=== PATIENT | female | born 1930 | race African-American/Black ===

== ENCOUNTER 2017-07-06 23:51 | Inpatient (IN) | payer MEDICAID, MEDICARE ==
[~2017-07-06] VITALS: Ht 160 cm; Wt 86.7 kg
[~2017-07-06 23:51] MED LIST: ASPIR 8181 MG GT; CARAFATE1 G1 GT; CARAFATE1 G1 ORAL; COLACE100 MG GT; COUMADIN5 MG GT; DILANTIN100 MG GT; DUONEB 0.5 MG-33 ML IH; DUONEB 0.5-3(2.53 ML HHN; FISH OIL EC 1,1 EACH GT; FLAGYL500 MG ORAL; FLUCONAZOLE100 MG ORAL; INVANZ1 GM IVPB; MOM30 ML GT; MULTIVITAM9 MG/15 M1 GT; NAMENDA10 MG GT; PRILOSEC20 MG GT; SALINE 10ML FLU10 ML IVF; TYLENOL EX500 MG/15 GT; TYLENOL EXTRA500 MG GT; VITAMIN D1000 UNI1 GT
[2017-07-07] VITALS (8 sets, daily range): BP systolic 98–136; BP diastolic 48–74
[2017-07-07] MEDS ORDERED: Vancomycin 1 GM in D5W 275 ML IVPB ONE (00:30)
[2017-07-07 00:40] LABS: MEAN CORPUSCULAR HEMOGLOBIN 31.6 PG (27.0-31.0); MEAN CORPUSCULAR VOLUME 96 FL (80-99); MEAN PLATELET VOLUME 11.5 FL (6.5-10.1); PLATELET COUNT 122 K/UL (150-450); RED BLOOD COUNT 4.17 M/UL (4.20-5.40); RED CELL DISTRIBUTION WIDTH 13.2 % (11.6-14.8)
[2017-07-07 00:59] LABS: REFLEX LACTIC ACID YES OR NO YES
[2017-07-07 01:21] LABS: ALANINE AMINOTRANSFERASE 18 U/L (3-33); ALBUMIN/GLOBULIN RATIO 0.7 (1.0-2.7); ANION GAP 15 (5-15); ASPARTATE AMINO TRANSFERASE 18 U/L (5-40); CALCIUM 9.9 mg/dL (8.6-10.2); CARBON DIOXIDE 28 mEQ/L (20-30); CHLORIDE 105 mEQ/L (98-107); CREATININE 2.3 mg/dL (0.5-0.9); HEMOLYSIS 36; POTASSIUM 4.7 mEQ/L (3.4-4.9); SODIUM 148 mEQ/L (135-145); TOTAL PROTEIN 6.8 g/dL (6.6-8.7)
[2017-07-07 01:31] LABS: BAND NEUTROPHILS % (MANUAL) 6 % (0-8); BASOPHILS % (MANUAL) 0 % (0-2); EOSINOPHILS % (MANUAL) 0 % (0-3); LYMPHOCYTES % (MANUAL) 8 % (20-45); NEUTROPHILS % (MANUAL) 79 % (45-75); PLATELET ESTIMATE DECREASED; TOTAL CELLS COUNTED 100
[2017-07-07 01:32] LABS: PLATELET MORPHOLOGY NORMAL
[2017-07-07 01:37] LABS: TROPONIN I < 0.30 ng/mL (<=0.30)
[2017-07-07 01:47] LABS: CKMB 3.7 ng/mL (< 3.8)
[2017-07-07 02:00] LABS: APPEARANCE,URINE CLOUDY; KETONES,URINE 1+ (NEGATIVE); LEUKOCYTE ESTERASE ,URINE 3+ (NEGATIVE); PH,URINE 5 (4.5-8.0); PROTEIN,URINE 2+ (NEGATIVE); UROBILINOGEN,URINE 1 MG/DL (0.0-1.0)
[2017-07-07 02:13] LABS: NITRITE,URINE POSITIVE (NEGATIVE)
[2017-07-07 02:14] LABS: BACTERIA,URINE MANY /HPF; SQUAMOUS EPITHELIAL CELL,UR MANY /LPF (NONE/OCC); WBC,URINE TNTC /HPF (0 - 2)
[2017-07-07] MEDS ORDERED: Cefepime HCl 1 GM in D5W 55 ML IVPB ONE (02:30)
[2017-07-07] MEDS ORDERED: Cefepime 1gm vial ONE (02:53)
[2017-07-07] MEDS ORDERED: PROTONIX40 MG GT (03:09)
[2017-07-07] MEDS ORDERED: ACETAMINOPHEN325 M1 ORAL (03:11)
[2017-07-07] MEDS ORDERED: COLACE100 MG ORAL (03:12)
[2017-07-07] MEDS ORDERED: DILANTIN50 MG ORAL (03:14)
[2017-07-07] MEDS ORDERED: FUROSEMIDE40 MG GT (03:16)
[2017-07-07] MEDS ORDERED: NAMENDA10 MG GT (03:17)
[2017-07-07] MEDS ORDERED: NORVASC5 MG GT (03:18)
[2017-07-07] MEDS ORDERED: BISCOLAX10 MG RC (03:20)
[2017-07-07] MEDS ORDERED: ZOFRAN4 M3 GT (03:21)
[2017-07-07] MEDS ORDERED: MULTIVITAMINS1 EAC8 ORAL (03:22)
[2017-07-07] MEDS ORDERED: COREG3.125 MG ORAL (03:23)
[2017-07-07] MEDS ORDERED: ATORVASTATIN CA40 MG ORAL (03:24)
[2017-07-07] MEDS ORDERED: CRANBERRY450 M4 GT (03:24)
--- NOTE | 2017-07-07 04:21 | Emergency Room Report ---
History of Present Illness General Chief Complaint: Generalized Weakness Source: Medical Record, EMS Present Illness HPI 86-year-old female presents to ED for evaluation. Per EMS patient was found more altered than baseline at her residential. Patient had a fever. Symptoms started today. She denies history of dementia. Upon arrival patient is showing no signs of distress. Patient is unable to provide any additional history at this time. No other aggravating or leading factors. No other associated symptoms Allergies: Coded Allergies: HALOPERIDOL (Verified Allergy, Unknown, 08/03/10) SULFA (SULFONAMIDE ANTIBIOTICS) (Verified Allergy, Unknown, 08/03/10) Patient History Past Medical History: DM, GERD, dementia Past Surgical History: other - Gtube Pertinent Family History: none Social History: Denies: smoking, alcohol use, drug use Now: No Immunizations: UTD Reviewed Nursing Documentation: PMH: Agreed, PSxH: Agreed Nursing Documentation-PMH Hx Diabetes: Yes Hx Gastrointestinal Problems: Yes - GERD GT History Of Psychiatric Problem: Yes - DEMENTIA Hx Cerebrovascular Accident: No - stroke Hx Seizures: Yes Review of Systems All Other Systems: limited Physical Exam Vital Signs Date Time Temp Pulse Resp B/P (MAP) Pulse Ox O2 Delivery O2 Flow Rate FiO2 07/06/17 23:40 98.4 80 16 100/48 92 Room Air Sp02 EP Interpretation: reviewed, normal General Appearance: no apparent distress, alert, GCS 15, non-toxic Head: normocephalic, atraumatic Eyes: bilateral eye normal inspection, bilateral eye PERRL ENT: hearing grossly normal, normal pharynx, no angioedema, normal voice Neck: full range of motion, supple/symm/no masses Respiratory: chest non-tender, lungs clear, normal breath sounds, speaking full sentences Cardiovascular #1: no edema, tachycardia Cardiovascular #2: 2+ carotid (R), 2+ carotid (L), 2+ radial (R), 2+ radial (L) , 2+ dorsalis pedis (R), 2+ dorsalis pedis (L) Gastrointestinal: normal bowel sounds, non tender, soft, non-distended, no guarding, no rebound Rectal: deferred Genitourinary: normal inspection, no CVA tenderness Musculoskeletal: back normal, gait/station normal, normal range of motion, non- tender Neurologic: other - dementia Psychiatric: other - dementiia Reflexes: 3+ bicep (R), 3+ bicep (L), 3+ tricep (R), 3+ tricep (L), 3+ knee (R) , 3+ knee (L) Skin: normal color, no rash, warm/dry, well hydrated Lymphatic: no adenopathy Medical Decision Making Diagnostic Impression: Primary Impression: Sepsis Qualified Codes: A41.9 - Sepsis, unspecified organism Additional Impressions: UTI (lower urinary tract infection) Respiratory insufficiency ER Course Hospital Course 86-year-old female presenting to ED with generalized weakness Differential diagnoses include: Pneumonia, UTI, sepsis, dehydration, IA/ unstable angina Clinical course Patient placed on stretcher. On nuclear monitoring technician with stable vitals are ED course. After initial history and physical, I ordered labs, IV fluids, EKG, chest x-ray, blood cultures, UA. Labs - BUN/Cr elevated, noted leukocytosis, troponins negative, UA grossly positive for UTI, lactate elevated EKG - NSR, no acute changes interpreted by me CXR - no acute process Abx given. given 30cc/kg fluid bolus. Case discussed with Dr Wills. Requested that I admit to Dr Garcia and they agreed to admit patient to their service for further care and support I feel this is a highly complex case requiring extensive working including EKG/ Rhythm strip, Xray/CT/US, Blood/urine lab work, repeat exams while in ED, and administration of strong opiates/narcotics for pain control, admission to hospital or close patient follow up. Diagnosis - sepsis, UTI, renal insufficiency Patient admitted to telemetry in serious condition Labs Test 07/07/17 00:20 07/07/17 01:45 07/07/17 01:59 White Blood Count 22.0 K/UL (4.8-10.8) Red Blood Count 4.17 M/UL (4.20-5.40) Hemoglobin 13.2 G/DL (12.0-16.0) Hematocrit 39.9 % (37.0-47.0) Mean Corpuscular Volume 96 FL (80-99) Mean Corpuscular Hemoglobin 31.6 PG (27.0-31.0) Mean Corpuscular Hemoglobin Concent 33.0 G/DL (32.0-36.0) Red Cell Distribution Width 13.2 % (11.6-14.8) Platelet Count 122 K/UL (150-450) Mean Platelet Volume 11.5 FL (6.5-10.1) Neutrophils (%) (Auto) % (45.0-75.0) Lymphocytes (%) (Auto) % (20.0-45.0) Monocytes (%) (Auto) % (1.0-10.0) Eosinophils (%) (Auto) % (0.0-3.0) Basophils (%) (Auto) % (0.0-2.0) Differential Total Cells Counted 100 Neutrophils % (Manual) 79 % (45-75) Lymphocytes % (Manual) 8 % (20-45) Monocytes % (Manual) 7 % (1-10) Eosinophils % (Manual) 0 % (0-3) Basophils % (Manual) 0 % (0-2) Band Neutrophils 6 % (0-8) Platelet Estimate Decreased Platelet Morphology Normal Red Blood Cell Morphology Normal Sodium Level 148 mEQ/L (135-145) Potassium Level 4.7 mEQ/L (3.4-4.9) Chloride Level 105 mEQ/L (98-107) Carbon Dioxide Level 28 mEQ/L (20-30) Anion Gap 15 (5-15) Blood Urea Nitrogen 96 mg/dL (7-23) Creatinine 2.3 mg/dL (0.5-0.9) Estimat Glomerular Filtration Rate mL/min (>60) Glucose Level 352 mg/dL (74-106) Lactic Acid Level 2.40 mmol/L (0.66-2.22) 2.40 mmol/L (0.66-2.22) Calcium Level 9.9 mg/dL (8.6-10.2) Total Bilirubin 0.4 mg/dL (0.0-1.2) Aspartate Amino Transf (AST/SGOT) 18 U/L (5-40) Alanine Aminotransferase (ALT/SGPT) 18 U/L (3-33) Alkaline Phosphatase 90 U/L (35-104) Total Creatine Kinase 77 U/L (26-140) Creatine Kinase MB 3.7 ng/mL (< 3.8) Creatine Kinase MB Relative Index 4.8 Troponin I < 0.30 ng/mL (<=0.30) Pro-B-Type Natriuretic Peptide 5084 pg/mL (0-450) Total Protein 6.8 g/dL (6.6-8.7) Albumin 2.9 g/dL (3.5-5.2) Globulin 3.9 g/dL Albumin/Globulin Ratio 0.7 (1.0-2.7) Urine Color Yellow Urine Appearance Cloudy Urine pH 5 (4.5-8.0) Urine Specific [place] 1.015 (1.005-1.035) Urine Protein 2+ (NEGATIVE) Urine Glucose (UA) Negative (NEGATIVE) Urine Ketones 1+ (NEGATIVE) Urine Occult Blood 2+ (NEGATIVE) Urine Nitrite Positive (NEGATIVE) Urine Bilirubin Negative (NEGATIVE) Urine Urobilinogen 1 MG/DL (0.0-1.0) Urine Leukocyte Esterase 3+ (NEGATIVE) Urine RBC 10-15 /HPF (0 - 2) Urine WBC Tntc /HPF (0 - 2) Urine Squamous Epithelial Cells Many /LPF (NONE/OCC) Urine Bacteria Many /HPF (NONE) EKG Diagnostic Results Rate: normal Rhythm: NSR ST Segments: no acute changes ASA given to the pt in ED: No Rhythm Strip Diag. Results EP Interpretation: yes Rhythm: NSR, no PVC's, no ectopy Chest X-Ray Diagnostic Results Chest X-Ray Diagnostic Results : Chest X-Ray Ordered: Yes # of Views/Limited/Complete: 1 View Indication: Shortness of Breath EP Interpretation: Yes Interpretation: no consolidation, no effusion, no pneumothorax, no acute cardiopulmonary disease, other - cardiomegaly Impression: No acute disease Electronically Signed by: Electronically signed by Dougie Artis MD Last Vital Signs Date Time Temp Pulse Resp B/P (MAP) Pulse Ox O2 Delivery O2 Flow Rate FiO2 07/07/17 03:03 98.4 91 24 108/59 94 Room Air Status: improved Disposition: ADMITTED INPATIENT Condition: Serious Referrals: ALBERTO GARCIA (PCP) DOUGIE ARTIS M.D. Jul 07, 2017 04:21
[2017-07-07] MEDS ORDERED: Morphine Sulfate 2mg/ml Inj IVP PRN (05:45)
[2017-07-07] MEDS ORDERED: Miralax 17gm pkt ORAL PRN (05:45)
[2017-07-07] MEDS ORDERED: Albuterol/Ipratropium 3ml neb HHN PRN (05:45)
[2017-07-07] MEDS ORDERED: Nitroglycerin Subl 0.4mg tab SL PRN (05:45)
[2017-07-07] MEDS ORDERED: LISINOPRIL10 MG GT (06:01)
[2017-07-07] MEDS ORDERED: GLUCERNA1500 ML GT (06:01)
[2017-07-07] MEDS ORDERED: HUMALOG100 UNIT/4 SUBQ (06:01)
[2017-07-07] MEDS ORDERED: Rx Monitoring Vancomycin MISC PRN (06:15)
[2017-07-07 08:53] LABS: APPEARANCE,URINE TURBID; KETONES,URINE NEGATIVE (NEGATIVE); LEUKOCYTE ESTERASE ,URINE 3+ (NEGATIVE); NITRITE,URINE NEGATIVE (NEGATIVE); PH,URINE 7 (4.5-8.0); PROTEIN,URINE 2+ (NEGATIVE); UROBILINOGEN,URINE NORMAL MG/DL (0.0-1.0)
[2017-07-07] MEDS: Heparin 5000 units/ml inj SUBQ SCH ×2 (08:57→20:37)
[2017-07-07] MEDS ORDERED: Cefepime HCl 2 GM in D5W 110 ML IV SCH (09:00)
[2017-07-07] MEDS ORDERED: Vancomycin 1250mg/D5W 250ml IVPB ONE (09:00)
[2017-07-07 09:21] LABS: ALANINE AMINOTRANSFERASE 18 U/L (3-33); ALBUMIN/GLOBULIN RATIO 0.6 (1.0-2.7); ANION GAP 13 (5-15); ASPARTATE AMINO TRANSFERASE 18 U/L (5-40); CALCIUM 9.4 mg/dL (8.6-10.2); CARBON DIOXIDE 27 mEQ/L (20-30); CHLORIDE 110 mEQ/L (98-107); CREATININE 1.8 mg/dL (0.5-0.9); HEMOLYSIS 0; MAGNESIUM 2.6 mg/dL (1.7-2.5); PHOSPHORUS 4.4 mg/dL (2.5-4.8); POTASSIUM 4.2 mEQ/L (3.4-4.9); SODIUM 150 mEQ/L (135-145); TOTAL PROTEIN 6.5 g/dL (6.6-8.7); URIC ACID 9.5 mg/dL (3.0-7.5)
[2017-07-07 09:37] LABS: BACTERIA,URINE MANY /HPF; HYALINE CASTS, URINE 0-2 /LPF; SQUAMOUS EPITHELIAL CELL,UR MANY /LPF (NONE/OCC)
--- NOTE | 2017-07-07 09:48 | Consultation ---
Consult Note Consult Note patient admitted to Dr Saeid Mejía am consulting for renal failure Chief Complaint: Generalized Weakness 86-year-old female presents to ED for evaluation. Per EMS patient was found more altered than baseline at her halfway. Patient had a fever. Symptoms started today. She denies history of dementia. Upon arrival patient is showing no signs of distress. Patient is unable to provide any additional history at this time. No other aggravating or leading factors. No other associated symptoms Allergies: HALOPERIDOL (Verified Allergy, Unknown, 08/03/10) SULFA (SULFONAMIDE ANTIBIOTICS) (Verified Allergy, Unknown, 08/03/10) Patient History Past Medical History: DM, GERD, dementia Past Surgical History: other - Gtube Hx Diabetes: Yes Hx Gastrointestinal Problems: Yes - GERD GT History Of Psychiatric Problem: Yes - DEMENTIA Hx Cerebrovascular Accident: No - stroke Hx Seizures: Yes Assessment/Plan Acute renal failure- Sepsis- likely urinary DM OOC h/o HTN PEG OBS Sz dosorder s/p Pneumonia h/o Anemia Plan: Hydrate- Avoid Nephrotoxics- Gastric support- Pulmonary toilet Monitor renal parameters and urine out put Keep BS and BP in check ALBERTO GARCIA Jul 07, 2017 09:48
--- NOTE | 2017-07-07 11:28 | Diagnostic Imaging Report ---
Indication: Dyspnea Comparison: 10/21/13 A single view chest radiograph was obtained. Findings: The superior mediastinum especially in the right paratracheal region is prominent but this was also the case on the last study from 2013 as well as in 2010. The heart is enlarged. Aorta is ectatic. The bones are osteopenic. Lungs are clear. Impression: No acute disease
[2017-07-07] MEDS: NovoLOG Insulin Flexpen SUBQ SCH ×3 (11:40→20:40)
[2017-07-07] MEDS: Pantoprazole Inj IVP SCH ×2 (11:40→20:36)
--- NOTE | 2017-07-07 12:27 | History and Physical ---
History of Present Illness General Date patient seen: Jul 07, 2017 Reason for Hospitalization: Generalized Weakness Present Illness HPI 86-year-old female with end stage dementia, bed bound Gube feeding, at the brink of life, presented to ED for evaluation of altered level of consciousness more than baseline at her residential. Patient had a fever as well with leukocytosis. Pt is admitted to [facility] for further evaluation. Allergies: Coded Allergies: HALOPERIDOL (Verified Allergy, Unknown, 08/03/10) SULFA (SULFONAMIDE ANTIBIOTICS) (Verified Allergy, Unknown, 08/03/10) Medication History Scheduled Amlodipine Besylate (Norvasc), 5 MG GT DAILY, (Reported) Aspirin* (Aspir 81*), 81 MG GT DAILY, (Reported) Atorvastatin Calcium* (Atorvastatin Calcium*), 80 MG ORAL BEDTIME, (Reported) Carvedilol (Coreg), 3.125 MG ORAL BID, (Reported) Cholecalciferol (Vitamin D3)* (Vitamin D*), 2,000 UNITS GT DAILY, (Reported) Cranberry Fruit Concentrate (Cranberry), 450 MG GT DAILY, (Reported) Docusate Sodium* (Colace*), 100 MG ORAL TWICE A DAY, (Reported) Furosemide* (Lasix*), 40 MG GT DAILY, (Reported) Insulin Lispro (Humalog), 0 SUBQ BID, (Reported) Ipratropium/Albuterol Sulfate (Duoneb 0.5 Mg-3 Mg/3 Ml Soln), 3 ML IH Q6HR, ( Reported) Lisinopril* (Lisinopril*), 20 MG GT DAILY, (Reported) Memantine Hcl* (Namenda*), 10 MG GT TWICE A DAY, (Reported) Memantine Hcl* (Namenda*), 10 MG GT TWICE A DAY, (Reported) Multivitamin With Minerals (Multivitamins With Minerals*), 1 TAB ORAL DAILY, ( Reported) [place]-3/Dha/Epa/Fish Oil (Fish Oil Ec 1,000 Mg Softgel), 1 GT DAILY, (Reported) Omeprazole (Prilosec), 20 MG GT DAILY, (Reported) Pantoprazole* (Protonix*), 40 MG GT DAILY, (Reported) Phenytoin (Dilantin), 50 MG ORAL EVERY 8 HOURS, (Reported) Phenytoin Sodium Extended* (Dilantin*), 100 MG GT Q8HR, (Reported) Sucralfate* (Carafate*), 1 GM GT Q12HR, (Reported) Scheduled PRN Acetaminophen (Tylenol Extra Strength), 650 MG GT Q4HR PRN for Prn Headache/ Temp > 101, (Reported) Acetaminophen* (Acetaminophen 325MG Tablet*), 325 MG ORAL Q4H PRN for Fever/ Headache/Mild Pain, (Reported) Ipratropium/Albuterol Sulfate (DuoNeb 0.5-3(2.5)mg/3ml), 3 ML HHN Q4HR PRN for Shortness of Breath, (Reported) Magnesium Hydroxide (Milk of Magnesia), 30 ML GT DAILY PRN for Constipation, ( Reported) Ondansetron* (Zofran*), 4 MG GT Q4HR PRN for Nausea & Vomiting, (Reported) Miscellaneous Medications Bisacodyl (Biscolax), 10 MG RC, (Reported) Multivits W-Min/Ferrous Gluc (Multivitamin-Mineral Liquid), 5 ML GT, (Reported) Nut.tx.gluc.intoler,Lac-Fr,Soy (Glucerna 1.2 Agustin), 1,500 ML GT, (Reported) Patient History Healthcare decision maker Kelly Mane (Daughter) Resuscitation status Full Code Advanced Directive on File No Past Medical/Surgical History Past Medical/Surgical History: (1) CVA, old, aphasia (2) G tube feedings (3) Seizure disorder (4) HTN (hypertension) (5) Diabetes Review of Systems All Other Systems: negative except mentioned in HPI Physical Exam General Appearance: WD/WN Lines, tubes and drains: gtube HEENT: normocephalic, atraumatic Neck: non-tender, normal alignment Respiratory/Chest: rhonchi - bilaterally Cardiovascular/Chest: normal peripheral pulses, normal rate Abdomen: normal bowel sounds, non tender Genitourinary/Rectal: normal genital exam Extremities: normal range of motion Skin Exam: normal pigmentation Neurologic: proof clerk II-XII grossly normal Lymphatic: posterior cervical (L) Last 24 Hour Vital Signs Date Time Temp Pulse Resp B/P (MAP) Pulse Ox O2 Delivery O2 Flow Rate FiO2 07/07/17 08:00 96.9 87 18 105/61 99 Nasal Cannula 3.0 07/07/17 08:00 83 07/07/17 06:55 Nasal Cannula 3.0 32 07/07/17 06:55 81 16 Nasal Cannula 3.0 32 07/07/17 06:55 99 Nasal Cannula 3.0 32 07/07/17 04:22 98.3 87 24 98/53 97 Nasal Cannula 2.0 07/07/17 04:22 98.3 87 24 98/53 97 Nasal Cannula 2.0 07/07/17 04:21 84 07/07/17 03:03 98.4 91 24 108/59 94 Room Air 07/07/17 00:15 98.4 85 16 100/48 92 Room Air 07/06/17 23:40 98.4 80 16 100/48 92 Room Air Intake and Output 07/07/17 07/08/17 19:00 07:00 Intake Total 110 ml Balance 110 ml IV Total 110 ml Laboratory Tests Test 07/07/17 00:20 07/07/17 01:45 07/07/17 01:59 07/07/17 06:50 White Blood Count 22.0 K/UL (4.8-10.8) H Red Blood Count 4.17 M/UL (4.20-5.40) L Hemoglobin 13.2 G/DL (12.0-16.0) Hematocrit 39.9 % (37.0-47.0) Mean Corpuscular Volume 96 FL (80-99) Mean Corpuscular Hemoglobin 31.6 PG (27.0-31.0) H Mean Corpuscular Hemoglobin Concent 33.0 G/DL (32.0-36.0) Red Cell Distribution Width 13.2 % (11.6-14.8) Platelet Count 122 K/UL (150-450) L Mean Platelet Volume 11.5 FL (6.5-10.1) H Neutrophils (%) (Auto) % (45.0-75.0) Lymphocytes (%) (Auto) % (20.0-45.0) Monocytes (%) (Auto) % (1.0-10.0) Eosinophils (%) (Auto) % (0.0-3.0) Basophils (%) (Auto) % (0.0-2.0) Differential Total Cells Counted 100 Neutrophils % (Manual) 79 % (45-75) H Lymphocytes % (Manual) 8 % (20-45) L Monocytes % (Manual) 7 % (1-10) Eosinophils % (Manual) 0 % (0-3) Basophils % (Manual) 0 % (0-2) Band Neutrophils 6 % (0-8) Platelet Estimate Decreased L Platelet Morphology Normal Red Blood Cell Morphology Normal Sodium Level 148 mEQ/L (135-145) H Potassium Level 4.7 mEQ/L (3.4-4.9) Chloride Level 105 mEQ/L (98-107) Carbon Dioxide Level 28 mEQ/L (20-30) Anion Gap 15 (5-15) Blood Urea Nitrogen 96 mg/dL (7-23) H Creatinine 2.3 mg/dL (0.5-0.9) H Estimat Glomerular Filtration Rate mL/min (>60) Glucose Level 352 mg/dL (74-106) H Lactic Acid Level 2.40 mmol/L (0.66-2.22) H 2.40 mmol/L (0.66-2.22) H Calcium Level 9.9 mg/dL (8.6-10.2) Total Bilirubin 0.4 mg/dL (0.0-1.2) Aspartate Amino Transf (AST/SGOT) 18 U/L (5-40) Alanine Aminotransferase (ALT/SGPT) 18 U/L (3-33) Alkaline Phosphatase 90 U/L (35-104) Total Creatine Kinase 77 U/L (26-140) Creatine Kinase MB 3.7 ng/mL (< 3.8) Creatine Kinase MB Relative Index 4.8 Troponin I < 0.30 ng/mL (<=0.30) Pro-B-Type Natriuretic Peptide 5084 pg/mL (0-450) H Total Protein 6.8 g/dL (6.6-8.7) Albumin 2.9 g/dL (3.5-5.2) L Globulin 3.9 g/dL Albumin/Globulin Ratio 0.7 (1.0-2.7) L Urine Color Yellow Pale yellow Urine Appearance Cloudy Turbid Urine pH 5 (4.5-8.0) 7 (4.5-8.0) Urine Specific [place] 1.015 (1.005-1.035) 1.010 (1.005-1.035) Urine Protein 2+ (NEGATIVE) H 2+ (NEGATIVE) H Urine Glucose (UA) Negative (NEGATIVE) Negative (NEGATIVE) Urine Ketones 1+ (NEGATIVE) H Negative (NEGATIVE) Urine Occult Blood 2+ (NEGATIVE) H 4+ (NEGATIVE) H Urine Nitrite Positive (NEGATIVE) H Negative (NEGATIVE) Urine Bilirubin Negative (NEGATIVE) Negative (NEGATIVE) Urine Urobilinogen 1 MG/DL (0.0-1.0) H Normal MG/DL (0.0-1.0) Urine Leukocyte Esterase 3+ (NEGATIVE) H 3+ (NEGATIVE) H Urine RBC 10-15 /HPF (0 - 2) H 10-15 /HPF (0 - 2) H Urine WBC Tntc /HPF (0 - 2) H 10-15 /HPF (0 - 2) H Urine Squamous Epithelial Cells Many /LPF (NONE/OCC) H Many /LPF (NONE/OCC) H Urine Bacteria Many /HPF (NONE) H Many /HPF (NONE) H Urine Hyaline Casts 0-2 /LPF (NONE) H Urine Eosinophils None seen Urine Osmolality 484 mOsm/kg (429-449) H Urine Random Sodium 23 mmol/L Urine Random Chloride 18 mmol/L Urine Potassium Timed 56 mmol/L Test 07/07/17 08:15 Sodium Level 150 mEQ/L (135-145) H Potassium Level 4.2 mEQ/L (3.4-4.9) Chloride Level 110 mEQ/L (98-107) H Carbon Dioxide Level 27 mEQ/L (20-30) Anion Gap 13 (5-15) Blood Urea Nitrogen 92 mg/dL (7-23) H Creatinine 1.8 mg/dL (0.5-0.9) H Estimat Glomerular Filtration Rate mL/min (>60) Glucose Level 332 mg/dL (74-106) H Uric Acid 9.5 mg/dL (3.0-7.5) H Calcium Level 9.4 mg/dL (8.6-10.2) Phosphorus Level 4.4 mg/dL (2.5-4.8) Magnesium Level 2.6 mg/dL (1.7-2.5) H Total Bilirubin 0.4 mg/dL (0.0-1.2) Aspartate Amino Transf (AST/SGOT) 18 U/L (5-40) Alanine Aminotransferase (ALT/SGPT) 18 U/L (3-33) Alkaline Phosphatase 94 U/L (35-104) Total Creatine Kinase 107 U/L (26-140) Total Protein 6.5 g/dL (6.6-8.7) L Albumin 2.6 g/dL (3.5-5.2) L Globulin 3.9 g/dL Albumin/Globulin Ratio 0.6 (1.0-2.7) L Free Thyroxine 1.76 ng/dL (0.86-1.85) Height (Feet): 5 Height (Inches): 3.00 Weight (Pounds): 152 Medications Current Medications Medications (Trade) Dose Ordered Sig/Charli Route PRN Reason Start Time Stop Time Status Last Admin Dose Admin Acetaminophen (Tylenol) 650 mg Q4H PRN ORAL fever 07/07/17 05:45 08/06/17 05:44 Albuterol/ Ipratropium (DuoNeb 0.5-3(2.5)mg/3ml) 3 ml EVERY 4 HOURS PRN HHN Shortness of Breath 07/07/17 05:45 07/12/17 05:44 Cefepime HCl 2 gm/ Dextrose 110 ml @ 220 mls/hr EVERY 12 HOURS IV 07/07/17 09:00 07/14/17 08:59 07/07/17 08:57 Dextrose (Dextrose 50%) STAT PRN IV Hypoglycemia 07/07/17 08:00 08/06/17 07:59 Heparin Sodium (Porcine) (Heparin 5000 units/ml) 5,000 units EVERY 12 HOURS SUBQ 07/07/17 09:00 08/06/17 08:59 07/07/17 08:57 Insulin Aspart (NovoLOG) BEFORE MEALS AND HS SUBQ 07/07/17 11:30 08/06/17 11:29 07/07/17 11:40 Morphine Sulfate (Morphine Sulfate) 2 mg EVERY 4 HOURS PRN IVP Moderate Pain (Pain Scale 4-6) 07/07/17 05:45 07/14/17 05:44 Nitroglycerin (Ntg) 0.4 mg Every 5 Minutes PRN SL Prn Chest Pain 07/07/17 05:45 08/06/17 05:44 Ondansetron HCl (Zofran) 4 mg Q6H PRN IVP Nausea & Vomiting 07/07/17 05:45 08/06/17 05:44 Pantoprazole (Protonix) 40 mg EVERY 12 HOURS IVP 07/07/17 10:30 08/06/17 10:29 07/07/17 11:40 Polyethylene Glycol (Miralax) 17 gm DAILYPRN PRN ORAL Constipation 07/07/17 05:45 08/06/17 05:44 Sodium Chloride 1,000 ml @ 100 mls/hr Q10H IVLG 07/08/17 00:21 08/07/17 00:20 Temazepam (Restoril) 15 mg HSPRN PRN ORAL Insomnia 07/07/17 05:45 07/14/17 05:44 Vancomycin HCl (Rx Monitoring Vancomycin) 1 ea DAILY PRN MISC PROTOCHOI 07/07/17 06:15 08/06/17 06:14 Vancomycin HCl 1 gm/Dextrose 275 ml @ 183.708 mls/hr Q48H IVPB 07/09/17 09:00 07/14/17 08:59 Assessment/Plan Problem List: (1) Sepsis ICD Codes: A41.9 - Sepsis SNOMED: 04817357 Qualifiers: Qualified Codes: A41.9 - Sepsis, unspecified organism (2) Acute encephalopathy ICD Codes: G93.40 - Encephalopathy, unspecified SNOMED: 6574027 (3) ATN (acute tubular necrosis) ICD Codes: N17.0 - Acute kidney failure with tubular necrosis SNOMED: 43775914 (4) CVA, old, aphasia ICD Codes: I69.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
--- NOTE | 2017-07-07 15:03 | Diagnostic Imaging Report ---
Indication:Elevated Bun and Creatinine. Technique: Grayscale and duplex Doppler imaging of the kidneys performed. Comparison: None Findings: Renal size and contour are normal. The right kidney is 11.6 cm while the left kidney is 0.3 cm. There are multiple cysts. There are some calcifications in the right kidney that could be small nonobstructive stones. Coronel catheter is noted. IVC is unremarkable. Impression: Possible nonobstructive stones versus vascular calcifications in the right kidney. No hydronephrosis. Multiple bilateral renal cysts of varying size
[2017-07-07] MEDS ORDERED: Tubing IV Secondary IV ONE (16:31)
[2017-07-07] MEDS ORDERED: NS 275ml ONE (16:31)
--- NOTE | 2017-07-07 19:35 | Consultation ---
Consult Note Consult Note dic # [id number] ALEXANDREA THOMAS M.D. Jul 07, 2017 19:35
[2017-07-08 03:53] VITALS: BP 131/69
--- NOTE | 2017-07-08 05:15 | Consultation ---
DATE OF CONSULTATION: 07/07/2017 INFECTIOUS DISEASES CONSULTATION CONSULTING PHYSICIAN: Levi Palma M.D. REQUESTING PHYSICIAN: Raul Garcia M.D. Reason For Consultation: Evaluation of the patient with sepsis, pneumonia, and antibiotic management. History Of Present Illness: The patient is an 86-year-old female with multiple medical problems, who was admitted to this medical center because of fever, leukocytosis, sepsis. An Infectious Disease consultation has been requested for evaluation of the patient and antibiotic management. The patient is not able to provide information. Much of the information is gathered through the chart and speaking to staff. PAST MEDICAL HISTORY: 1. Dementia. 2. GERD, status post PEG placement. 3. Seizure disorder. 4. Recent DVT. 5. Hyperlipidemia. 6. Hypertension. 7. COPD. 8. Obesity. 9. GI bleed. 10. Osteoarthritis. 11. Diabetes. 12. Anemia. MEDICATION: Vancomycin and cefepime. ALLERGIES: Haloperidol and sulfa. SOCIAL HISTORY: The patient lives in a alf. FAMILY HISTORY: Unavailable. REVIEW OF SYSTEMS: Unobtainable. PHYSICAL EXAMINATION: Vital Signs: Temperature 96.8, blood pressure 102/56, pulse rate 66, respiratory rate 18. HEENT: No pale conjunctiva. No icterus. NECK: No lymphadenopathy. CHEST: Clear. HEART: S1 and S2. Abdomen: Soft. Does not appear to be tender. No organomegaly. Obese. EXTREMITIES: No cyanosis. NEUROLOGIC: Nonverbal. SKIN: Stage 1 decubitus in the sacral area. Laboratory Findings: White blood cells 22, hemoglobin 13, and platelets 122,000. UA, too numerous to count white blood cells. Liver function tests unremarkable. Creatinine 1.8, BUN 92. Assessment And Plan: The patient is an 86-year-old female with multiple medical problems, who has been admitted to this medical center with: 1. Sepsis. 2. Leukocytosis. 3. Rule out bacteremia. 4. Possible urinary tract infection. PLAN: 1. We will continue the patient on IV vancomycin and cefepime. 2. Monitor CBC. 3. Monitor BMP. 4. Monitor cultures (blood, urine). 5. Monitor the patient's clinical course and labs and based on those, we will do further recommendations. 6. Also, monitor chest x-ray. Thank you, Dr. Garcia, for allowing me to participate in the care of this patient. I will follow the patient with you during this hospitalization. Levi Palma M.D. DR: Rukhsana JOB#: [id number] CC:
[2017-07-08] MEDS: NovoLOG Insulin Flexpen SUBQ SCH ×4 (05:47→21:15)
[2017-07-08 06:39] LABS: BASOPHILS % (AUTO) 0.2 % (0.0-2.0); EOSINOPHILS % (AUTO) 0.1 % (0.0-3.0); LYMPHOCYTES % (AUTO) 8.3 % (20.0-45.0); MEAN CORPUSCULAR HEMOGLOBIN 30.6 PG (27.0-31.0); MEAN CORPUSCULAR HGB CONC 30.8 G/DL (32.0-36.0); MEAN CORPUSCULAR VOLUME 99 FL (80-99); MEAN PLATELET VOLUME 10.8 FL (6.5-10.1); MONOCYTES % (AUTO) 6.6 % (1.0-10.0); NEUTROPHILS % (AUTO) 84.9 % (45.0-75.0); PLATELET COUNT 105 K/UL (150-450); RED BLOOD COUNT 4.05 M/UL (4.20-5.40); RED CELL DISTRIBUTION WIDTH 13.3 % (11.6-14.8); WHITE BLOOD COUNT 17.3 K/UL (4.8-10.8)
[2017-07-08 07:06] LABS: TROPONIN I < 0.30 ng/mL (<=0.30)
[2017-07-08 07:07] LABS: ALANINE AMINOTRANSFERASE 22 U/L (3-33); ALBUMIN/GLOBULIN RATIO 0.6 (1.0-2.7); ANION GAP 13 (5-15); ASPARTATE AMINO TRANSFERASE 26 U/L (5-40); CALCIUM 9.6 mg/dL (8.6-10.2); CARBON DIOXIDE 26 mEQ/L (20-30); CHLORIDE 113 mEQ/L (98-107); CHOLESTEROL 73 mg/dL (< 200); CHOLESTEROL/HDL RATIO 2.4 (3.3-4.4); CREATININE 1.4 mg/dL (0.5-0.9); HEMOLYSIS 9; LDL CHOLESTEROL CALC 19 mg/dL (60-99); POTASSIUM 4.3 mEQ/L (3.4-4.9); SODIUM 152 mEQ/L (135-145); TOTAL PROTEIN 6.5 g/dL (6.6-8.7)
[2017-07-08 07:08] LABS: CRP QUANT 30.5 mg/dL (< 0.5); MAGNESIUM 2.8 mg/dL (1.7-2.5); PHOSPHORUS 3.5 mg/dL (2.5-4.8); URIC ACID 10.2 mg/dL (3.0-7.5)
[2017-07-08 07:12] LABS: REFLEX LACTIC ACID YES OR NO YES
[2017-07-08 07:17] LABS: THYROID STIMULATING HORMONE 0.079 uIU/mL (0.300-4.500)
[2017-07-08 07:33] LABS: HEMOGLOBIN A1C 6.7 % (< 6.0)
[2017-07-08 08:00] VITALS: BP 125/50
[2017-07-08] MEDS: Pantoprazole Inj IVP SCH ×2 (08:39→21:12)
[2017-07-08] MEDS: Cefepime 1gm/D5W 55ml IVPB SCH ×2 (08:39)
[2017-07-08] MEDS: Heparin 5000 units/ml inj SUBQ SCH ×2 (08:48→21:13)
--- NOTE | 2017-07-08 09:46 | General Progress Note ---
Assessment/Plan Status: unchanged Status Narrative Cr lower- BS better- BP improved- WBCs lower Assessment/Plan status; Acute renal failure- Sepsis- likely urinary DM OOC h/o HTN PEG OBS Sz dosorder s/p Pneumonia h/o Anemia Plan: Hydrate- Avoid Nephrotoxics- Gastric support- Pulmonary toilet Monitor renal parameters and urine out put Keep BS and BP in check Subjective ROS Limited/Unobtainable: No Constitutional: Reports: malaise Allergies: Coded Allergies: HALOPERIDOL (Verified Allergy, Unknown, 08/03/10) SULFA (SULFONAMIDE ANTIBIOTICS) (Verified Allergy, Unknown, 08/03/10) Objective Last 24 Hour Vital Signs Date Time Temp Pulse Resp B/P (MAP) Pulse Ox O2 Delivery O2 Flow Rate FiO2 07/08/17 08:34 Nasal Cannula 3.0 32 07/08/17 08:34 98 Nasal Cannula 3.0 32 07/08/17 08:33 92 20 Nasal Cannula 3.0 32 07/08/17 08:00 97.3 92 22 125/50 98 Nasal Cannula 3.0 07/08/17 04:00 88 07/08/17 03:53 97.8 87 20 131/69 96 Nasal Cannula 3.0 07/08/17 00:00 85 07/07/17 23:32 97.7 89 24 103/56 100 Nasal Cannula 3.0 07/07/17 20:15 Nasal Cannula 2.0 28 07/07/17 20:14 99 Nasal Cannula 2.0 28 07/07/17 20:14 84 20 Nasal Cannula 22.0 28 07/07/17 20:00 87 07/07/17 20:00 96.6 81 20 136/74 100 Nasal Cannula 3.0 07/07/17 16:00 84 07/07/17 16:00 96.8 86 20 103/56 100 Nasal Cannula 3.0 07/07/17 12:00 96.3 85 20 111/60 100 Nasal Cannula 3.0 07/07/17 12:00 86 Laboratory Tests 07/08/17 06:20: White Blood Count 17.3H, Red Blood Count 4.05L, Hemoglobin 12.4, Hematocrit 40.2 , Mean Corpuscular Volume 99, Mean Corpuscular Hemoglobin 30.6, Mean Corpuscular Hemoglobin Concent 30.8L, Red Cell Distribution Width 13.3, Platelet Count 105L, Mean Platelet Volume 10.8H, Neutrophils (%) (Auto) 84.9H, Lymphocytes (%) (Auto) 8.3L, Monocytes (%) (Auto) 6.6, Eosinophils (%) (Auto) 0.1, Basophils (%) (Auto) 0.2, Sodium Level 152H, Potassium Level 4.3, Chloride Level 113H, Carbon Dioxide Level 26, Anion Gap 13, Blood Urea Nitrogen 84H, Creatinine 1.4H, Estimat Glomerular Filtration Rate , Glucose Level 254H, Hemoglobin A1c 6.7H, Lactic Acid Level 2.00, Uric Acid 10.2H, Calcium Level 9.6 , Phosphorus Level 3.5, Magnesium Level 2.8H, Total Bilirubin < 0.2, Gamma Glutamyl Transpeptidase 241H, Aspartate Amino Transf (AST/SGOT) 26, Alanine Aminotransferase (ALT/SGPT) 22, Alkaline Phosphatase 92, Total Creatine Kinase 93, Troponin I < 0.30, C-Reactive Protein, Quantitative 30.5H, Pro-B-Type Natriuretic Peptide 1300H, Total Protein 6.5L, Albumin 2.6L, Globulin 3.9, Albumin/Globulin Ratio 0.6L, Triglycerides Level 115, Cholesterol Level 73, LDL Cholesterol 19L, HDL Cholesterol 31, Cholesterol/HDL Ratio 2.4L, Thyroid Stimulating Hormone (TSH) 0.079L, Vancomycin Level Trough 10.7 07/08/17 08:30: Lactic Acid Level 2.40H Height (Feet): 5 Height (Inches): 3.00 Weight (Pounds): 152 General Appearance: mild distress Cardiovascular: tachycardia Respiratory/Chest: decreased breath sounds, rhonchi - bilaterally Abdomen: soft Objective no other change ALBERTO GARCIA Jul 08, 2017 09:46
[2017-07-08] MEDS: Vancomycin 1gm in D5W 275ml IVPB SCH (09:57)
[2017-07-08] MEDS: Aspirin Baby 81mg GT SCH (09:58)
--- NOTE | 2017-07-08 11:05 | Pulmonology Progress Note ---
Assessment/Plan Problems: (1) Sepsis (2) Acute encephalopathy (3) ATN (acute tubular necrosis) (4) CVA, old, aphasia (5) Seizure disorder (6) HTN (hypertension) (7) Diabetes (8) G tube feedings Assessment/Plan improving continue abx check cultures check electrolytes dvt prophylaxis socials service to talk to family about code status. Subjective ROS Limited/Unobtainable: No Interval Events: open eyes Allergies: Coded Allergies: HALOPERIDOL (Verified Allergy, Unknown, 08/03/10) SULFA (SULFONAMIDE ANTIBIOTICS) (Verified Allergy, Unknown, 08/03/10) Objective Last 24 Hour Vital Signs Date Time Temp Pulse Resp B/P (MAP) Pulse Ox O2 Delivery O2 Flow Rate FiO2 07/08/17 08:34 Nasal Cannula 3.0 32 07/08/17 08:34 98 Nasal Cannula 3.0 32 07/08/17 08:33 92 20 Nasal Cannula 3.0 32 07/08/17 08:00 97.3 92 22 125/50 98 Nasal Cannula 3.0 07/08/17 07:31 91 07/08/17 04:00 88 07/08/17 03:53 97.8 87 20 131/69 96 Nasal Cannula 3.0 07/08/17 00:00 85 07/07/17 23:32 97.7 89 24 103/56 100 Nasal Cannula 3.0 07/07/17 20:15 Nasal Cannula 2.0 28 07/07/17 20:14 99 Nasal Cannula 2.0 28 07/07/17 20:14 84 20 Nasal Cannula 22.0 28 07/07/17 20:00 87 07/07/17 20:00 96.6 81 20 136/74 100 Nasal Cannula 3.0 07/07/17 16:00 84 07/07/17 16:00 96.8 86 20 103/56 100 Nasal Cannula 3.0 07/07/17 12:00 96.3 85 20 111/60 100 Nasal Cannula 3.0 07/07/17 12:00 86 Intake and Output 07/08/17 07/09/17 19:00 07:00 Intake Total 320 ml Balance 320 ml Free Water 100 ml IV Total 55 ml Tube Feeding 165 ml General Appearance: WD/WN HEENT: normocephalic, atraumatic Respiratory/Chest: chest wall non-tender, lungs clear Breasts: no masses Cardiovascular: normal peripheral pulses, normal rate Abdomen: normal bowel sounds, soft, non tender Genitourinary: normal external genitalia Extremities: no cyanosis 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, no motor/sensory deficits Lymphatic: no neck adenopathy Microbiology Date/Time Source Procedure Growth Status 07/07/17 00:35 Blood Blood Culture - Preliminary NO GROWTH AFTER 24 HOURS Resulted 07/07/17 00:20 Blood Blood Culture - Preliminary NO GROWTH AFTER 24 HOURS Resulted 07/07/17 01:45 Urine,Clean Catch Urine Culture - Preliminary Gram Negative Bacillus 1 Gram Negative Bacillus 2 Resulted Laboratory Tests 07/08/17 06:20: White Blood Count 17.3H, Red Blood Count 4.05L, Hemoglobin 12.4, Hematocrit 40.2 , Mean Corpuscular Volume 99, Mean Corpuscular Hemoglobin 30.6, Mean Corpuscular Hemoglobin Concent 30.8L, Red Cell Distribution Width 13.3, Platelet Count 105L, Mean Platelet Volume 10.8H, Neutrophils (%) (Auto) 84.9H, Lymphocytes (%) (Auto) 8.3L, Monocytes (%) (Auto) 6.6, Eosinophils (%) (Auto) 0.1, Basophils (%) (Auto) 0.2, Sodium Level 152H, Potassium Level 4.3, Chloride Level 113H, Carbon Dioxide Level 26, Anion Gap 13, Blood Urea Nitrogen 84H, Creatinine 1.4H, Estimat Glomerular Filtration Rate , Glucose Level 254H, Hemoglobin A1c 6.7H, Lactic Acid Level 2.00, Uric Acid 10.2H, Calcium Level 9.6 , Phosphorus Level 3.5, Magnesium Level 2.8H, Total Bilirubin < 0.2, Gamma Glutamyl Transpeptidase 241H, Aspartate Amino Transf (AST/SGOT) 26, Alanine Aminotransferase (ALT/SGPT) 22, Alkaline Phosphatase 92, Total Creatine Kinase 93, Troponin I < 0.30, C-Reactive Protein, Quantitative 30.5H, Pro-B-Type Natriuretic Peptide 1300H, Total Protein 6.5L, Albumin 2.6L, Globulin 3.9, Albumin/Globulin Ratio 0.6L, Triglycerides Level 115, Cholesterol Level 73, LDL Cholesterol 19L, HDL Cholesterol 31, Cholesterol/HDL Ratio 2.4L, Thyroid Stimulating Hormone (TSH) 0.079L, Vancomycin Level Trough 10.7, Phenytoin ( Dilantin) Level 2.2L 07/08/17 08:30: Lactic Acid Level 2.40H Current Medications Medications (Trade) Dose Ordered Sig/Charli Route PRN Reason Start Time Stop Time Status Last Admin Dose Admin Acetaminophen (Tylenol) 650 mg Q4H PRN ORAL fever 07/07/17 05:45 08/06/17 05:44 Albuterol/ Ipratropium (DuoNeb 0.5-3(2.5)mg/3ml) 3 ml EVERY 4 HOURS PRN HHN Shortness of Breath 07/07/17 05:45 07/12/17 05:44 Aspirin (ASA) 81 mg DAILY GT 07/08/17 10:00 08/07/17 09:59 07/08/17 09:58 Carvedilol (Coreg) 3.125 mg BID ORAL 07/08/17 18:00 08/07/17 17:59 Cefepime HCl 1 gm/ Dextrose 55 ml @ 110 mls/hr Q24H IVPB 07/08/17 09:00 07/15/17 08:59 07/08/17 08:39 Dextrose 1,000 ml @ 75 mls/hr [id number] IV 07/08/17 09:30 08/07/17 09:29 07/08/17 09:58 Dextrose (Dextrose 50%) STAT PRN IV Hypoglycemia 07/07/17 08:00 08/06/17 07:59 Docusate Sodium (Colace) 100 mg TWICE A DAY ORAL 07/08/17 18:00 08/07/17 17:59 Heparin Sodium (Porcine) (Heparin 5000 units/ml) 5,000 units EVERY 12 HOURS SUBQ 07/07/17 09:00 08/06/17 08:59 07/07/17 20:37 Insulin Aspart (NovoLOG) BEFORE MEALS AND HS SUBQ 07/07/17 11:30 08/06/17 11:29 07/08/17 05:47 Morphine Sulfate (Morphine Sulfate) 2 mg EVERY 4 HOURS PRN IVP Moderate Pain (Pain Scale 4-6) 07/07/17 05:45 07/14/17 05:44 Nitroglycerin (Ntg) 0.4 mg Every 5 Minutes PRN SL Prn Chest Pain 07/07/17 05:45 08/06/17 05:44 Ondansetron HCl (Zofran) 4 mg Q6H PRN IVP Nausea & Vomiting 07/07/17 05:45 08/06/17 05:44 Pantoprazole (Protonix) 40 mg EVERY 12 HOURS IVP 07/07/17 10:30 08/06/17 10:29 07/08/17 08:39 Polyethylene Glycol (Miralax) 17 gm DAILYPRN PRN ORAL Constipation 07/07/17 05:45 08/06/17 05:44 Temazepam (Restoril) 15 mg HSPRN PRN ORAL Insomnia 07/07/17 05:45 07/14/17 05:44 Vancomycin HCl (Rx Monitoring Vancomycin) 1 ea DAILY PRN MISC PROTOCHOI 07/07/17 06:15 08/06/17 06:14 Vancomycin HCl 1 gm/Dextrose 275 ml @ 183.708 mls/hr Q24H IVPB 07/08/17 09:00 07/13/17 08:59 07/08/17 09:57 GORAN GUTIERREZ Jul 08, 2017 11:05
[2017-07-08 12:30] VITALS: BP 134/73
[2017-07-08 16:24] VITALS: BP 129/72
[2017-07-08] MEDS: Docusate 100mg cap ORAL SCH (17:31)
[2017-07-08 20:00] VITALS: BP 128/77
--- NOTE | 2017-07-08 20:13 | Infectious Diseases Prog Note ---
Assessment/Plan Assessment/Plan Assessment : The patient is an 86-year-old female with Sepsis. Leukocytosis, improving Rule out bacteremia. Urinary tract infection: GNR x 2 CRP : 30 KEVYN: improving Dementia. GERD, status post PEG placement. Seizure disorder. Recent DVT. Hyperlipidemia. Hypertension. COPD. Obesity. hx of GI bleed. Osteoarthritis. Diabetes. Anemia. PLAN: continue the patient on IV vancomycin and cefepime d# 2 Monitor CBC Monitor BMP. Monitor cultures (blood, urine) monitor chest x-ray. Subjective Constitutional: Denies: no symptoms, fever, chills, fatigue, anorexia, drenching sweats, other Allergies: Coded Allergies: HALOPERIDOL (Verified Allergy, Unknown, 08/03/10) SULFA (SULFONAMIDE ANTIBIOTICS) (Verified Allergy, Unknown, 08/03/10) Objective Vital Signs Last 24 Hour Vital Signs Date Time Temp Pulse Resp B/P (MAP) Pulse Ox O2 Delivery O2 Flow Rate FiO2 07/08/17 17:31 88 129/72 07/08/17 16:24 97.3 88 24 129/72 99 Nasal Cannula 3.0 07/08/17 16:00 90 07/08/17 12:30 96.6 90 24 134/73 99 Nasal Cannula 3.0 07/08/17 12:00 89 07/08/17 08:34 Nasal Cannula 3.0 32 07/08/17 08:34 98 Nasal Cannula 3.0 32 07/08/17 08:33 92 20 Nasal Cannula 3.0 32 07/08/17 08:00 97.3 92 22 125/50 98 Nasal Cannula 3.0 07/08/17 07:31 91 07/08/17 04:00 88 07/08/17 03:53 97.8 87 20 131/69 96 Nasal Cannula 3.0 07/08/17 00:00 85 07/07/17 23:32 97.7 89 24 103/56 100 Nasal Cannula 3.0 07/07/17 20:15 Nasal Cannula 2.0 28 07/07/17 20:14 99 Nasal Cannula 2.0 28 07/07/17 20:14 84 20 Nasal Cannula 22.0 28 Height (Feet): 5 Height (Inches): 3.00 Weight (Pounds): 152 HEENT: anicteric Respiratory/Chest: no respiratory distress Cardiovascular: regularly irregular Abdomen: no organomegaly Microbiology Date/Time Source Procedure Growth Status 07/07/17 00:35 Blood Blood Culture - Preliminary NO GROWTH AFTER 24 HOURS Resulted 07/07/17 00:20 Blood Blood Culture - Preliminary NO GROWTH AFTER 24 HOURS Resulted 07/07/17 01:45 Urine,Clean Catch Urine Culture - Preliminary Gram Negative Bacillus 1 Gram Negative Bacillus 2 Resulted Laboratory Tests Test 07/08/17 06:20 07/08/17 08:30 White Blood Count 17.3 K/UL (4.8-10.8) H Red Blood Count 4.05 M/UL (4.20-5.40) L Hemoglobin 12.4 G/DL (12.0-16.0) Hematocrit 40.2 % (37.0-47.0) Mean Corpuscular Volume 99 FL (80-99) Mean Corpuscular Hemoglobin 30.6 PG (27.0-31.0) Mean Corpuscular Hemoglobin Concent 30.8 G/DL (32.0-36.0) L Red Cell Distribution Width 13.3 % (11.6-14.8) Platelet Count 105 K/UL (150-450) L Mean Platelet Volume 10.8 FL (6.5-10.1) H Neutrophils (%) (Auto) 84.9 % (45.0-75.0) H Lymphocytes (%) (Auto) 8.3 % (20.0-45.0) L Monocytes (%) (Auto) 6.6 % (1.0-10.0) Eosinophils (%) (Auto) 0.1 % (0.0-3.0) Basophils (%) (Auto) 0.2 % (0.0-2.0) Sodium Level 152 mEQ/L (135-145) H Potassium Level 4.3 mEQ/L (3.4-4.9) Chloride Level 113 mEQ/L (98-107) H Carbon Dioxide Level 26 mEQ/L (20-30) Anion Gap 13 (5-15) Blood Urea Nitrogen 84 mg/dL (7-23) H Creatinine 1.4 mg/dL (0.5-0.9) H Estimat Glomerular Filtration Rate mL/min (>60) Glucose Level 254 mg/dL (74-106) H Hemoglobin A1c 6.7 % (< 6.0) H Lactic Acid Level 2.00 mmol/L (0.66-2.22) 2.40 mmol/L (0.66-2.22) H Uric Acid 10.2 mg/dL (3.0-7.5) H Calcium Level 9.6 mg/dL (8.6-10.2) Phosphorus Level 3.5 mg/dL (2.5-4.8) Magnesium Level 2.8 mg/dL (1.7-2.5) H Total Bilirubin < 0.2 mg/dL (0.0-1.2) Gamma Glutamyl Transpeptidase 241 U/L (5-36) H Aspartate Amino Transf (AST/SGOT) 26 U/L (5-40) Alanine Aminotransferase (ALT/SGPT) 22 U/L (3-33) Alkaline Phosphatase 92 U/L (35-104) Total Creatine Kinase 93 U/L (26-140) Troponin I < 0.30 ng/mL (<=0.30) C-Reactive Protein, Quantitative 30.5 mg/dL (< 0.5) H Pro-B-Type Natriuretic Peptide 1300 pg/mL (0-450) H Total Protein 6.5 g/dL (6.6-8.7) L Albumin 2.6 g/dL (3.5-5.2) L Globulin 3.9 g/dL Albumin/Globulin Ratio 0.6 (1.0-2.7) L Triglycerides Level 115 mg/dL (< 150) Cholesterol Level 73 mg/dL (< 200) LDL Cholesterol 19 mg/dL (60-99) L HDL Cholesterol 31 mg/dL (> 60) Cholesterol/HDL Ratio 2.4 (3.3-4.4) L Thyroid Stimulating Hormone (TSH) 0.079 uIU/mL (0.300-4.500) Vancomycin Level Trough 10.7 ug/mL (5.0-12.0) Phenytoin (Dilantin) Level 2.2 ug/mL (10-20) L Current Medications Medications (Trade) Dose Ordered Sig/Charli Route PRN Reason Start Time Stop Time Status Last Admin Dose Admin Acetaminophen (Tylenol) 650 mg Q4H PRN ORAL fever 07/07/17 05:45 08/06/17 05:44 Albuterol/ Ipratropium (DuoNeb 0.5-3(2.5)mg/3ml) 3 ml EVERY 4 HOURS PRN N Shortness of Breath 07/07/17 05:45 07/12/17 05:44 Aspirin (ASA) 81 mg DAILY GT 07/08/17 10:00 08/07/17 09:59 07/08/17 09:58 Carvedilol (Coreg) 3.125 mg BID ORAL 07/08/17 18:00 08/07/17 17:59 07/08/17 17:31 Cefepime HCl 1 gm/ Dextrose 55 ml @ 110 mls/hr Q24H IVPB 07/08/17 09:00 07/15/17 08:59 07/08/17 08:39 Dextrose 1,000 ml @ 75 mls/hr [id number] IV 07/08/17 09:30 08/07/17 09:29 07/08/17 09:58 Dextrose (Dextrose 50%) STAT PRN IV Hypoglycemia 07/07/17 08:00 08/06/17 07:59 Docusate Sodium (Colace) 100 mg TWICE A DAY ORAL 07/08/17 18:00 08/07/17 17:59 07/08/17 17:31 Heparin Sodium (Porcine) (Heparin 5000 units/ml) 5,000 units EVERY 12 HOURS SUBQ 07/07/17 09:00 08/06/17 08:59 07/07/17 20:37 Insulin Aspart (NovoLOG) BEFORE MEALS AND HS SUBQ 07/07/17 11:30 08/06/17 11:29 07/08/17 17:29 Morphine Sulfate (Morphine Sulfate) 2 mg EVERY 4 HOURS PRN IVP Moderate Pain (Pain Scale 4-6) 07/07/17 05:45 07/14/17 05:44 Nitroglycerin (Ntg) 0.4 mg Every 5 Minutes PRN SL Prn Chest Pain 07/07/17 05:45 08/06/17 05:44 Ondansetron HCl (Zofran) 4 mg Q6H PRN IVP Nausea & Vomiting 07/07/17 05:45 08/06/17 05:44 Pantoprazole (Protonix) 40 mg EVERY 12 HOURS IVP 07/07/17 10:30 08/06/17 10:29 07/08/17 08:39 Polyethylene Glycol (Miralax) 17 gm DAILYPRN PRN ORAL Constipation 07/07/17 05:45 08/06/17 05:44 Temazepam (Restoril) 15 mg HSPRN PRN ORAL Insomnia 07/07/17 05:45 07/14/17 05:44 Vancomycin HCl (Rx Monitoring Vancomycin) 1 ea DAILY PRN MISC PROTOCHOI 07/07/17 06:15 08/06/17 06:14 Vancomycin HCl 1 gm/Dextrose 275 ml @ 183.708 mls/hr Q24H IVPB 07/08/17 09:00 07/13/17 08:59 07/08/17 09:57 ALEXANDREA THOMAS M.D. Jul 08, 2017 20:13
[2017-07-09] VITALS: BP 153/74
[2017-07-09 04:00] VITALS: BP 150/87
[2017-07-09 05:40] LABS: BASOPHILS % (AUTO) 0.3 % (0.0-2.0); EOSINOPHILS % (AUTO) 0.9 % (0.0-3.0); MEAN CORPUSCULAR HEMOGLOBIN 30.9 PG (27.0-31.0); MEAN CORPUSCULAR HGB CONC 31.1 G/DL (32.0-36.0); MEAN CORPUSCULAR VOLUME 99 FL (80-99); MEAN PLATELET VOLUME 10.2 FL (6.5-10.1); NEUTROPHILS % (AUTO) 72.8 % (45.0-75.0); PLATELET COUNT 126 K/UL (150-450); RED BLOOD COUNT 3.83 M/UL (4.20-5.40); WHITE BLOOD COUNT 12.4 K/UL (4.8-10.8)
[2017-07-09 06:02] LABS: ALANINE AMINOTRANSFERASE 24 U/L (3-33); ALBUMIN/GLOBULIN RATIO 0.6 (1.0-2.7); ANION GAP 11 (5-15); ASPARTATE AMINO TRANSFERASE 25 U/L (5-40); CALCIUM 9.8 mg/dL (8.6-10.2); CARBON DIOXIDE 28 mEQ/L (20-30); CHLORIDE 111 mEQ/L (98-107); CREATININE 1.1 mg/dL (0.5-0.9); HEMOLYSIS 3; MAGNESIUM 2.6 mg/dL (1.7-2.5); PHOSPHORUS 1.9 mg/dL (2.5-4.8); POTASSIUM 4.1 mEQ/L (3.4-4.9); SODIUM 150 mEQ/L (135-145); TOTAL PROTEIN 6.4 g/dL (6.6-8.7); URIC ACID 9.4 mg/dL (3.0-7.5)
[2017-07-09] MEDS: NovoLOG Insulin Flexpen SUBQ SCH ×3 (06:39→18:25)
[2017-07-09 08:00] VITALS: BP 157/81
[2017-07-09] MEDS: Aspirin Baby 81mg GT SCH (08:57)
[2017-07-09] MEDS: Pantoprazole Inj IVP SCH ×2 (08:57→21:16)
[2017-07-09] MEDS: Docusate 100mg cap ORAL SCH ×2 (08:57→18:24)
[2017-07-09] MEDS: Heparin 5000 units/ml inj SUBQ SCH ×2 (08:58→20:54)
[2017-07-09] MEDS: Vancomycin 1gm in D5W 275ml IVPB SCH (09:00)
[2017-07-09] MEDS ORDERED: Aspirin EC 81mg tab ORAL SCH (09:00)
[2017-07-09] MEDS: Cefepime 1gm/D5W 55ml IVPB SCH ×2 (09:00)
[2017-07-09] MEDS ORDERED: Rx Monitoring Vancomycin MISC PRN (09:00)
[2017-07-09] MEDS ORDERED: NS 275ml ONE (10:31)
--- NOTE | 2017-07-09 11:24 | Pulmonology Progress Note ---
Assessment/Plan Problems: (1) Sepsis (2) Acute encephalopathy (3) ATN (acute tubular necrosis) (4) CVA, old, aphasia (5) Seizure disorder (6) HTN (hypertension) (7) Diabetes (8) G tube feedings Assessment/Plan improving continue abx check cultures check electrolytes dvt prophylaxis bun/creatinine decreasing urine culture still pending hemodynamically stable for med/surg Subjective ROS Limited/Unobtainable: No Constitutional: Reports: no symptoms HEENT: Repors: no symptoms Respiratory: Reports: no symptoms Allergies: Coded Allergies: HALOPERIDOL (Verified Allergy, Unknown, 08/03/10) SULFA (SULFONAMIDE ANTIBIOTICS) (Verified Allergy, Unknown, 08/03/10) Objective Last 24 Hour Vital Signs Date Time Temp Pulse Resp B/P (MAP) Pulse Ox O2 Delivery O2 Flow Rate FiO2 07/09/17 08:57 88 157/81 07/09/17 08:17 Nasal Cannula 3.0 32 07/09/17 08:16 97 Nasal Cannula 3.0 32 07/09/17 08:14 88 22 Nasal Cannula 3.0 32 07/09/17 08:00 97.8 85 20 157/81 99 Venturi Mask 8.0 35 07/09/17 08:00 88 07/09/17 04:00 90 07/09/17 04:00 99.0 91 28 150/87 97 Nasal Cannula 3.0 07/09/17 00:00 99.0 91 28 153/74 98 Nasal Cannula 3.0 07/09/17 00:00 92 07/08/17 20:54 Nasal Cannula 3.0 32 07/08/17 20:54 98 Nasal Cannula 3.0 32 07/08/17 20:53 85 20 Nasal Cannula 3.0 32 07/08/17 20:00 99.3 87 32 128/77 98 Nasal Cannula 3.0 07/08/17 20:00 87 07/08/17 17:31 88 129/72 07/08/17 16:24 97.3 88 24 129/72 99 Nasal Cannula 3.0 07/08/17 16:00 90 07/08/17 12:30 96.6 90 24 134/73 99 Nasal Cannula 3.0 07/08/17 12:00 89 General Appearance: WD/WN HEENT: normocephalic, anicteric Respiratory/Chest: chest wall non-tender, lungs clear Breasts: no masses Cardiovascular: normal rate Abdomen: normal bowel sounds, soft, non tender Extremities: no cyanosis 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, no motor/sensory deficits Microbiology Date/Time Source Procedure Growth Status 07/07/17 00:35 Blood Blood Culture - Preliminary NO GROWTH AFTER 48 HOURS Resulted 07/07/17 00:20 Blood Blood Culture - Preliminary NO GROWTH AFTER 48 HOURS Resulted 07/07/17 01:45 Urine,Clean Catch Urine Culture - Preliminary Gram Negative Bacillus 1 Gram Negative Bacillus 2 Resulted Laboratory Tests 07/09/17 03:40: White Blood Count 12.4H, Red Blood Count 3.83L, Hemoglobin 11.8L, Hematocrit 38.1, Mean Corpuscular Volume 99, Mean Corpuscular Hemoglobin 30.9, Mean Corpuscular Hemoglobin Concent 31.1L, Red Cell Distribution Width 13.0, Platelet Count 126L, Mean Platelet Volume 10.2H, Neutrophils (%) (Auto) 72.8, Lymphocytes (%) (Auto) 14.0L, Monocytes (%) (Auto) 12.0H, Eosinophils (%) (Auto ) 0.9, Basophils (%) (Auto) 0.3, Sodium Level 150H, Potassium Level 4.1, Chloride Level 111H, Carbon Dioxide Level 28, Anion Gap 11, Blood Urea Nitrogen 64H, Creatinine 1.1H, Estimat Glomerular Filtration Rate , Glucose Level 382#H, Uric Acid 9.4H, Calcium Level 9.8, Phosphorus Level 1.9L, Magnesium Level 2.6H, Total Bilirubin < 0.2, Gamma Glutamyl Transpeptidase 231H, Aspartate Amino Transf (AST/SGOT) 25, Alanine Aminotransferase (ALT/SGPT) 24, Alkaline Phosphatase 140H, Pro-B-Type Natriuretic Peptide 2840H, Total Protein 6.4L, Albumin 2.5L, Globulin 3.9, Albumin/Globulin Ratio 0.6L Current Medications Medications (Trade) Dose Ordered Sig/Charli Route PRN Reason Start Time Stop Time Status Last Admin Dose Admin Acetaminophen (Tylenol) 650 mg Q4H PRN ORAL fever 07/07/17 05:45 08/06/17 05:44 Albuterol/ Ipratropium (DuoNeb 0.5-3(2.5)mg/3ml) 3 ml EVERY 4 HOURS PRN HHN Shortness of Breath 07/07/17 05:45 07/12/17 05:44 Aspirin (ASA) 81 mg DAILY GT 07/08/17 10:00 08/07/17 09:59 07/09/17 08:57 Carvedilol (Coreg) 3.125 mg BID ORAL 07/08/17 18:00 08/07/17 17:59 07/09/17 08:57 Cefepime HCl 1 gm/ Dextrose 55 ml @ 110 mls/hr Q24H IVPB 07/08/17 09:00 07/15/17 08:59 07/09/17 09:00 Dextrose 1,000 ml @ 75 mls/hr [id number] IV 07/08/17 09:30 08/07/17 09:29 07/09/17 01:21 Dextrose (Dextrose 50%) STAT PRN IV Hypoglycemia 07/07/17 08:00 08/06/17 07:59 Docusate Sodium (Colace) 100 mg TWICE A DAY ORAL 07/08/17 18:00 08/07/17 17:59 07/09/17 08:57 Heparin Sodium (Porcine) (Heparin 5000 units/ml) 5,000 units EVERY 12 HOURS SUBQ 07/07/17 09:00 08/06/17 08:59 07/09/17 08:58 Insulin Aspart (NovoLOG) BEFORE MEALS AND HS SUBQ 07/07/17 11:30 08/06/17 11:29 07/09/17 06:39 Morphine Sulfate (Morphine Sulfate) 2 mg EVERY 4 HOURS PRN IVP Moderate Pain (Pain Scale 4-6) 07/07/17 05:45 07/14/17 05:44 Nitroglycerin (Ntg) 0.4 mg Every 5 Minutes PRN SL Prn Chest Pain 07/07/17 05:45 08/06/17 05:44 Ondansetron HCl (Zofran) 4 mg Q6H PRN IVP Nausea & Vomiting 07/07/17 05:45 08/06/17 05:44 Pantoprazole (Protonix) 40 mg EVERY 12 HOURS IVP 07/07/17 10:30 08/06/17 10:29 07/09/17 08:57 Polyethylene Glycol (Miralax) 17 gm DAILYPRN PRN ORAL Constipation 07/07/17 05:45 08/06/17 05:44 Temazepam (Restoril) 15 mg HSPRN PRN ORAL Insomnia 07/07/17 05:45 07/14/17 05:44 Vancomycin HCl (Rx Monitoring Vancomycin) 1 ea DAILY PRN MISC PROTOCHOI 07/07/17 06:15 08/06/17 06:14 Vancomycin HCl 1 gm/Dextrose 275 ml @ 183.708 mls/hr Q24H IVPB 07/08/17 09:00 07/13/17 08:59 07/09/17 09:00 GORAN GUTIERREZ Jul 09, 2017 11:24
--- NOTE | 2017-07-09 11:53 | General Progress Note ---
Assessment/Plan Status: stable - from renal stand Assessment/Plan Status; Acute renal failure- Sepsis- likely urinary DM OOC h/o HTN PEG OBS Sz dosorder s/p Pneumonia h/o Anemia Plan: Slow Hydrate- recheck CXR Avoid Nephrotoxics- Gastric support- Pulmonary toilet Monitor renal parameters and urine out put Keep BS and BP in check JIGNESH: Possible nonobstructive stones versus vascular calcifications in the right kidney. No hydronephrosis. Multiple bilateral renal cysts of varying size Subjective ROS Limited/Unobtainable: No Constitutional: Reports: malaise, weakness Allergies: Coded Allergies: HALOPERIDOL (Verified Allergy, Unknown, 08/03/10) SULFA (SULFONAMIDE ANTIBIOTICS) (Verified Allergy, Unknown, 08/03/10) Objective Last 24 Hour Vital Signs Date Time Temp Pulse Resp B/P (MAP) Pulse Ox O2 Delivery O2 Flow Rate FiO2 07/09/17 08:57 88 157/81 07/09/17 08:17 Nasal Cannula 3.0 32 07/09/17 08:16 97 Nasal Cannula 3.0 32 07/09/17 08:14 88 22 Nasal Cannula 3.0 32 07/09/17 08:00 97.8 85 20 157/81 99 Venturi Mask 8.0 35 07/09/17 08:00 88 07/09/17 04:00 90 07/09/17 04:00 99.0 91 28 150/87 97 Nasal Cannula 3.0 07/09/17 00:00 99.0 91 28 153/74 98 Nasal Cannula 3.0 07/09/17 00:00 92 07/08/17 20:54 Nasal Cannula 3.0 32 07/08/17 20:54 98 Nasal Cannula 3.0 32 07/08/17 20:53 85 20 Nasal Cannula 3.0 32 07/08/17 20:00 99.3 87 32 128/77 98 Nasal Cannula 3.0 07/08/17 20:00 87 07/08/17 17:31 88 129/72 07/08/17 16:24 97.3 88 24 129/72 99 Nasal Cannula 3.0 07/08/17 16:00 90 07/08/17 12:30 96.6 90 24 134/73 99 Nasal Cannula 3.0 07/08/17 12:00 89 Intake and Output 07/09/17 07/10/17 19:00 07:00 Intake Total 592.500 ml Balance 592.500 ml IV Total 592.500 ml Laboratory Tests 07/09/17 03:40: White Blood Count 12.4H, Red Blood Count 3.83L, Hemoglobin 11.8L, Hematocrit 38.1, Mean Corpuscular Volume 99, Mean Corpuscular Hemoglobin 30.9, Mean Corpuscular Hemoglobin Concent 31.1L, Red Cell Distribution Width 13.0, Platelet Count 126L, Mean Platelet Volume 10.2H, Neutrophils (%) (Auto) 72.8, Lymphocytes (%) (Auto) 14.0L, Monocytes (%) (Auto) 12.0H, Eosinophils (%) (Auto ) 0.9, Basophils (%) (Auto) 0.3, Sodium Level 150H, Potassium Level 4.1, Chloride Level 111H, Carbon Dioxide Level 28, Anion Gap 11, Blood Urea Nitrogen 64H, Creatinine 1.1H, Estimat Glomerular Filtration Rate , Glucose Level 382#H, Uric Acid 9.4H, Calcium Level 9.8, Phosphorus Level 1.9L, Magnesium Level 2.6H, Total Bilirubin < 0.2, Gamma Glutamyl Transpeptidase 231H, Aspartate Amino Transf (AST/SGOT) 25, Alanine Aminotransferase (ALT/SGPT) 24, Alkaline Phosphatase 140H, Pro-B-Type Natriuretic Peptide 2840H, Total Protein 6.4L, Albumin 2.5L, Globulin 3.9, Albumin/Globulin Ratio 0.6L Height (Feet): 5 Height (Inches): 3.00 Weight (Pounds): 188 General Appearance: mild distress Cardiovascular: other - rate 88 Respiratory/Chest: decreased breath sounds, rhonchi - bilaterally Abdomen: soft Objective no other change ALBERTO GARCIA Jul 09, 2017 11:53
[2017-07-09 12:00] VITALS: BP 157/73
[2017-07-09] MEDS ORDERED: Potassium Phosphate 30 MM in NS 275 ML IV ONE ×2 (13:30→14:00)
--- NOTE | 2017-07-09 13:30 | Diagnostic Imaging Report ---
Indication: COUGH Technique: One view of the chest Comparison: 07/07/2017 Findings: There is some atelectasis or scarring at the left lateral lung base which appears similar to the previous study. The heart remains enlarged. The remainder lungs and pleural spaces are clear. Aorta is tortuous. The upper mediastinum is again quite prominent. Impression: Unchanged, over one day, findings as above. Prominent upper mediastinum. Prior chest CT of 10/19/2013 demonstrates that this is due to markedly enlarged multinodular thyroid
[2017-07-09] MEDS ORDERED: Miralax 17gm pkt ORAL PRN (14:00)
[2017-07-09] MEDS ORDERED: Morphine Sulfate 2mg/ml Inj IVP PRN (14:00)
[2017-07-09] MEDS ORDERED: Albuterol/Ipratropium 3ml neb HHN PRN (14:00)
[2017-07-09] MEDS ORDERED: Nitroglycerin Subl 0.4mg tab SL PRN (14:00)
[2017-07-09 16:00] VITALS: BP 149/74
[2017-07-09] MEDS ORDERED: NovoLOG Insulin Flexpen SUBQ SCH (16:30)
[2017-07-09 20:00] VITALS: BP 141/69
--- NOTE | 2017-07-09 20:27 | Infectious Diseases Prog Note ---
Assessment/Plan Assessment/Plan Assessment : The patient is an 86-year-old female with Sepsis. Leukocytosis, improving Rule out bacteremia. Urinary tract infection: Ecoli and P mirabilis CRP : 30 KEVYN: improving Dementia. GERD, status post PEG placement. Seizure disorder. Recent DVT. Hyperlipidemia. Hypertension. COPD. Obesity. hx of GI bleed. Osteoarthritis. Diabetes. Anemia. PLAN: DC IV vancomycin and cefepime d# 3 , and start Rocephin d# 1/ , ok to DC w cont of ABRx Monitor CBC Monitor BMP. Monitor cultures (blood monitor chest x-ray. Subjective Constitutional: Denies: no symptoms, fever, chills, fatigue, anorexia, drenching sweats, other Allergies: Coded Allergies: HALOPERIDOL (Verified Allergy, Unknown, 08/03/10) SULFA (SULFONAMIDE ANTIBIOTICS) (Verified Allergy, Unknown, 08/03/10) Objective Vital Signs Last 24 Hour Vital Signs Date Time Temp Pulse Resp B/P (MAP) Pulse Ox O2 Delivery O2 Flow Rate FiO2 07/09/17 20:00 98.2 84 21 141/69 100 Nasal Cannula 3.0 07/09/17 19:29 97 Nasal Cannula 3.0 32 07/09/17 19:29 Nasal Cannula 3.0 32 07/09/17 19:29 94 20 Nasal Cannula 3.0 32 07/09/17 18:24 85 149/74 07/09/17 16:00 97.3 85 17 149/74 95 07/09/17 12:00 98.5 83 20 157/73 97 Nasal Cannula 3.0 07/09/17 08:57 88 157/81 07/09/17 08:17 Nasal Cannula 3.0 32 07/09/17 08:16 97 Nasal Cannula 3.0 32 07/09/17 08:14 88 22 Nasal Cannula 3.0 32 07/09/17 08:00 97.8 85 20 157/81 99 Venturi Mask 8.0 35 07/09/17 08:00 88 07/09/17 04:00 90 07/09/17 04:00 99.0 91 28 150/87 97 Nasal Cannula 3.0 07/09/17 00:00 99.0 91 28 153/74 98 Nasal Cannula 3.0 07/09/17 00:00 92 07/08/17 20:54 Nasal Cannula 3.0 32 07/08/17 20:54 98 Nasal Cannula 3.0 32 07/08/17 20:53 85 20 Nasal Cannula 3.0 32 Height (Feet): 5 Height (Inches): 3.00 Weight (Pounds): 188 HEENT: atraumatic Respiratory/Chest: no accessory muscle use Cardiovascular: no gallop/murmur Abdomen: no mass Microbiology Date/Time Source Procedure Growth Status 07/07/17 00:35 Blood Blood Culture - Preliminary NO GROWTH AFTER 48 HOURS Resulted 07/07/17 00:20 Blood Blood Culture - Preliminary NO GROWTH AFTER 48 HOURS Resulted 07/07/17 01:45 Urine,Clean Catch Urine Culture - Final Escherichia Coli Proteus Mirabilis Complete Laboratory Tests Test 07/09/17 03:40 07/09/17 11:00 White Blood Count 12.4 K/UL (4.8-10.8) H Red Blood Count 3.83 M/UL (4.20-5.40) L Hemoglobin 11.8 G/DL (12.0-16.0) L Hematocrit 38.1 % (37.0-47.0) Mean Corpuscular Volume 99 FL (80-99) Mean Corpuscular Hemoglobin 30.9 PG (27.0-31.0) Mean Corpuscular Hemoglobin Concent 31.1 G/DL (32.0-36.0) L Red Cell Distribution Width 13.0 % (11.6-14.8) Platelet Count 126 K/UL (150-450) L Mean Platelet Volume 10.2 FL (6.5-10.1) H Neutrophils (%) (Auto) 72.8 % (45.0-75.0) Lymphocytes (%) (Auto) 14.0 % (20.0-45.0) L Monocytes (%) (Auto) 12.0 % (1.0-10.0) H Eosinophils (%) (Auto) 0.9 % (0.0-3.0) Basophils (%) (Auto) 0.3 % (0.0-2.0) Sodium Level 150 mEQ/L (135-145) H Potassium Level 4.1 mEQ/L (3.4-4.9) Chloride Level 111 mEQ/L (98-107) H Carbon Dioxide Level 28 mEQ/L (20-30) Anion Gap 11 (5-15) Blood Urea Nitrogen 64 mg/dL (7-23) H Creatinine 1.1 mg/dL (0.5-0.9) H Estimat Glomerular Filtration Rate mL/min (>60) Glucose Level 382 mg/dL (74-106) #H Uric Acid 9.4 mg/dL (3.0-7.5) H Calcium Level 9.8 mg/dL (8.6-10.2) Phosphorus Level 1.9 mg/dL (2.5-4.8) L Magnesium Level 2.6 mg/dL (1.7-2.5) H Total Bilirubin < 0.2 mg/dL (0.0-1.2) Gamma Glutamyl Transpeptidase 231 U/L (5-36) H Aspartate Amino Transf (AST/SGOT) 25 U/L (5-40) Alanine Aminotransferase (ALT/SGPT) 24 U/L (3-33) Alkaline Phosphatase 140 U/L (35-104) H Pro-B-Type Natriuretic Peptide 2840 pg/mL (0-450) H Total Protein 6.4 g/dL (6.6-8.7) L Albumin 2.5 g/dL (3.5-5.2) L Globulin 3.9 g/dL Albumin/Globulin Ratio 0.6 (1.0-2.7) L Hepatitis A IgM Antibody Pending Hepatitis B Surface Antigen Pending Hepatitis B Core IgM Antibody Pending Hepatitis C Antibody Pending Current Medications Medications (Trade) Dose Ordered Sig/Charli Route PRN Reason Start Time Stop Time Status Last Admin Dose Admin Acetaminophen (Tylenol) 650 mg Q4H PRN ORAL fever>100.5 07/09/17 14:00 08/06/17 13:59 Albuterol/ Ipratropium (DuoNeb 0.5-3(2.5)mg/3ml) 3 ml Q4H PRN HHN Shortness of Breath 07/09/17 14:00 07/14/17 13:59 Aspirin (ASA) 81 mg DAILY GT 07/10/17 09:00 08/07/17 09:59 Carvedilol (Coreg) 3.125 mg BID ORAL 07/09/17 18:00 08/07/17 17:59 07/09/17 18:24 Cefepime HCl 1 gm/ Dextrose 55 ml @ 110 mls/hr Q24H IVPB 07/10/17 09:00 07/15/17 08:59 Dextrose 1,000 ml @ 75 mls/hr [id number] IV 07/09/17 14:00 08/07/17 13:59 07/09/17 15:00 Dextrose (Dextrose 50%) STAT PRN IV Hypoglycemia 07/09/17 14:00 08/08/17 13:59 Docusate Sodium (Colace) 100 mg TWICE A DAY ORAL 07/09/17 18:00 08/07/17 17:59 07/09/17 18:24 Heparin Sodium (Porcine) (Heparin 5000 units/ml) 5,000 units EVERY 12 HOURS SUBQ 07/09/17 21:00 08/06/17 08:59 Insulin Aspart (NovoLOG) Q6HR SUBQ 07/09/17 18:00 08/06/17 11:29 07/09/17 18:25 Morphine Sulfate (Morphine Sulfate) 2 mg Q4H PRN IVP Moderate Pain (Pain Scale 4-6) 07/09/17 14:00 07/16/17 13:59 Nitroglycerin (Ntg) 0.4 mg Every 5 Minutes PRN SL Prn Chest Pain 07/09/17 14:00 08/06/17 13:59 Ondansetron HCl (Zofran) 4 mg Q6H PRN IVP Nausea & Vomiting 07/09/17 14:00 08/06/17 13:59 Pantoprazole (Protonix) 40 mg EVERY 12 HOURS IVP 07/09/17 21:00 08/06/17 10:29 Polyethylene Glycol (Miralax) 17 gm DAILYPRN PRN ORAL Constipation 07/09/17 14:00 08/08/17 13:59 Temazepam (Restoril) 15 mg HSPRN PRN ORAL Insomnia 07/10/17 21:00 07/14/17 20:59 Vancomycin HCl (Rx Monitoring Vancomycin) 1 ea DAILY PRN MISC PROTOCHOI 07/09/17 09:00 08/08/17 08:59 Vancomycin HCl 1 gm/Dextrose 275 ml @ 183.708 mls/hr Q24H IVPB 07/10/17 09:00 07/13/17 08:59 ALEXANDREA THOMAS M.D. Jul 09, 2017 20:27
[2017-07-09] MEDS: cefTRIAXone 1 GM in D5W 55 ML IVPB SCH (21:17)
[2017-07-10] VITALS: BP 157/73
[2017-07-10] MEDS: NovoLOG Insulin Flexpen SUBQ SCH ×4 (00:37→17:34)
[2017-07-10 04:00] VITALS: BP 132/65
[2017-07-10 07:26] LABS: BASOPHILS % (AUTO) 0.4 % (0.0-2.0); EOSINOPHILS % (AUTO) 1.1 % (0.0-3.0); LYMPHOCYTES % (AUTO) 14.5 % (20.0-45.0); MEAN CORPUSCULAR HEMOGLOBIN 31.2 PG (27.0-31.0); MEAN CORPUSCULAR HGB CONC 31.5 G/DL (32.0-36.0); MEAN CORPUSCULAR VOLUME 99 FL (80-99); MEAN PLATELET VOLUME 10.8 FL (6.5-10.1); MONOCYTES % (AUTO) 10.1 % (1.0-10.0); NEUTROPHILS % (AUTO) 73.8 % (45.0-75.0); PLATELET COUNT 110 K/UL (150-450); RED BLOOD COUNT 3.81 M/UL (4.20-5.40); RED CELL DISTRIBUTION WIDTH 13.3 % (11.6-14.8); WHITE BLOOD COUNT 13.8 K/UL (4.8-10.8)
[2017-07-10 07:32] LABS: ALANINE AMINOTRANSFERASE 22 U/L (3-33); ALBUMIN/GLOBULIN RATIO 0.5 (1.0-2.7); ANION GAP 8 (5-15); ASPARTATE AMINO TRANSFERASE 19 U/L (5-40); CALCIUM 9.5 mg/dL (8.6-10.2); CARBON DIOXIDE 30 mEQ/L (20-30); CHLORIDE 110 mEQ/L (98-107); HEMOLYSIS 1; POTASSIUM 4.7 mEQ/L (3.4-4.9); SODIUM 148 mEQ/L (135-145); TOTAL PROTEIN 6.4 g/dL (6.6-8.7)
[2017-07-10 08:00] VITALS: BP 138/87
[2017-07-10] MEDS: Heparin 5000 units/ml inj SUBQ SCH ×2 (09:00→21:00)
[2017-07-10] MEDS ORDERED: Cefepime HCl 1 GM in D5W 55 ML IVPB SCH (09:00)
[2017-07-10] MEDS ORDERED: Vancomycin 1 GM in D5W 275 ML IVPB SCH (09:00)
[2017-07-10] MEDS: Docusate 100mg cap ORAL SCH ×2 (09:19→17:42)
[2017-07-10] MEDS: Pantoprazole Inj IVP SCH ×2 (09:19→20:26)
[2017-07-10] MEDS: Aspirin Baby 81mg GT SCH (09:19)
[2017-07-10 09:20] LABS: CRP QUANT 15.7 mg/dL (< 0.5)
[2017-07-10 12:00] VITALS: BP 133/66
--- NOTE | 2017-07-10 13:02 | General Progress Note ---
Assessment/Plan Status: stable - from renal stand Assessment/Plan Status; Acute renal failure- Sepsis- likely urinary DM OOC h/o HTN PEG OBS Sz dosorder s/p Pneumonia h/o Anemia Plan: Slow Hydrate- low dose Lasix recheck CXR Avoid Nephrotoxics- Gastric support- Pulmonary toilet Monitor renal parameters and urine out put Keep BS and BP in check JIGNESH: Possible nonobstructive stones versus vascular calcifications in the right kidney. No hydronephrosis. Multiple bilateral renal cysts of varying size Subjective Constitutional: Reports: malaise, weakness Allergies: Coded Allergies: HALOPERIDOL (Verified Allergy, Unknown, 08/03/10) SULFA (SULFONAMIDE ANTIBIOTICS) (Verified Allergy, Unknown, 08/03/10) Objective Last 24 Hour Vital Signs Date Time Temp Pulse Resp B/P (MAP) Pulse Ox O2 Delivery O2 Flow Rate FiO2 07/10/17 12:00 97.7 78 21 133/66 98 Nasal Cannula 3.0 07/10/17 09:18 88 138/87 07/10/17 09:04 88 16 98 Nasal Cannula 3.0 32 07/10/17 09:01 32 07/10/17 09:01 97 18 95 Nasal Cannula 3.0 32 07/10/17 08:00 97.9 85 20 138/87 99 Nasal Cannula 3.0 07/10/17 07:40 Nasal Cannula 3.0 32 07/10/17 07:40 95 20 Nasal Cannula 3.0 32 07/10/17 07:40 96 Nasal Cannula 3.0 32 07/10/17 04:00 98.5 93 24 132/65 100 Nasal Cannula 3.0 07/10/17 00:00 98.1 88 22 157/73 100 Nasal Cannula 3.0 07/09/17 20:00 98.2 84 21 141/69 100 Nasal Cannula 3.0 07/09/17 19:29 97 Nasal Cannula 3.0 32 07/09/17 19:29 Nasal Cannula 3.0 32 07/09/17 19:29 94 20 Nasal Cannula 3.0 32 07/09/17 18:24 85 149/74 07/09/17 16:00 97.3 85 17 149/74 95 Laboratory Tests 07/10/17 05:20: White Blood Count 13.8H, Red Blood Count 3.81L, Hemoglobin 11.9L, Hematocrit 37.8, Mean Corpuscular Volume 99, Mean Corpuscular Hemoglobin 31.2H, Mean Corpuscular Hemoglobin Concent 31.5L, Red Cell Distribution Width 13.3, Platelet Count 110L, Mean Platelet Volume 10.8H, Neutrophils (%) (Auto) 73.8, Lymphocytes (%) (Auto) 14.5L, Monocytes (%) (Auto) 10.1H, Eosinophils (%) (Auto ) 1.1, Basophils (%) (Auto) 0.4, Sodium Level 148H, Potassium Level 4.7, Chloride Level 110H, Carbon Dioxide Level 30, Anion Gap 8, Blood Urea Nitrogen 43H, Creatinine 1.0H, Estimat Glomerular Filtration Rate , Glucose Level 291H, Uric Acid 8.0H, Calcium Level 9.5, Phosphorus Level 3.0, Magnesium Level 2.0, Total Bilirubin < 0.2, Aspartate Amino Transf (AST/SGOT) 19, Alanine Aminotransferase (ALT/SGPT) 22, Alkaline Phosphatase 124H, C-Reactive Protein, Quantitative 15.7H, Pro-B-Type Natriuretic Peptide 3819H, Total Protein 6.4L, Albumin 2.3L, Globulin 4.1, Albumin/Globulin Ratio 0.5L Height (Feet): 5 Height (Inches): 3.00 Weight (Pounds): 188 General Appearance: no apparent distress Cardiovascular: regular rhythm Respiratory/Chest: decreased breath sounds Abdomen: distended Objective no other change ALBERTO GARCIA Jul 10, 2017 13:02
[2017-07-10 16:00] VITALS: BP 130/76
--- NOTE | 2017-07-10 18:26 | Pulmonology Progress Note ---
Assessment/Plan Problems: (1) Sepsis (2) Acute encephalopathy (3) ATN (acute tubular necrosis) (4) CVA, old, aphasia (5) Seizure disorder (6) HTN (hypertension) (7) Diabetes (8) G tube feedings Assessment/Plan add robunil to control secretions improving continue abx check cultures check electrolytes dvt prophylaxis bun/creatinine decreasing Subjective ROS Limited/Unobtainable: No Interval Events: loud rhonchi Allergies: Coded Allergies: HALOPERIDOL (Verified Allergy, Unknown, 08/03/10) SULFA (SULFONAMIDE ANTIBIOTICS) (Verified Allergy, Unknown, 08/03/10) Objective Last 24 Hour Vital Signs Date Time Temp Pulse Resp B/P (MAP) Pulse Ox O2 Delivery O2 Flow Rate FiO2 07/10/17 17:41 75 130/76 07/10/17 16:00 97.9 75 17 130/76 99 Nasal Cannula 3.0 07/10/17 12:00 97.7 78 21 133/66 98 Nasal Cannula 3.0 07/10/17 09:18 88 138/87 07/10/17 09:04 88 16 98 Nasal Cannula 3.0 32 07/10/17 09:01 32 07/10/17 09:01 97 18 95 Nasal Cannula 3.0 32 07/10/17 08:00 97.9 85 20 138/87 99 Nasal Cannula 3.0 07/10/17 07:40 Nasal Cannula 3.0 32 07/10/17 07:40 95 20 Nasal Cannula 3.0 32 07/10/17 07:40 96 Nasal Cannula 3.0 32 07/10/17 04:00 98.5 93 24 132/65 100 Nasal Cannula 3.0 07/10/17 00:00 98.1 88 22 157/73 100 Nasal Cannula 3.0 07/09/17 20:00 98.2 84 21 141/69 100 Nasal Cannula 3.0 07/09/17 19:29 97 Nasal Cannula 3.0 32 07/09/17 19:29 Nasal Cannula 3.0 32 07/09/17 19:29 94 20 Nasal Cannula 3.0 32 Intake and Output 07/10/17 07/11/17 19:00 07:00 Intake Total 50 ml Output Total 150 ml Balance -100 ml IV Total 50 ml Output Urine Total 150 ml General Appearance: WD/WN HEENT: normocephalic, atraumatic Respiratory/Chest: lungs clear Breasts: no masses Cardiovascular: normal peripheral pulses Abdomen: normal bowel sounds, soft, non tender Genitourinary: normal external genitalia Extremities: no clubbing Skin: no ulcers Neurologic/Psychiatric: no motor/sensory deficits Laboratory Tests 07/10/17 05:20: White Blood Count 13.8H, Red Blood Count 3.81L, Hemoglobin 11.9L, Hematocrit 37.8, Mean Corpuscular Volume 99, Mean Corpuscular Hemoglobin 31.2H, Mean Corpuscular Hemoglobin Concent 31.5L, Red Cell Distribution Width 13.3, Platelet Count 110L, Mean Platelet Volume 10.8H, Neutrophils (%) (Auto) 73.8, Lymphocytes (%) (Auto) 14.5L, Monocytes (%) (Auto) 10.1H, Eosinophils (%) (Auto ) 1.1, Basophils (%) (Auto) 0.4, Sodium Level 148H, Potassium Level 4.7, Chloride Level 110H, Carbon Dioxide Level 30, Anion Gap 8, Blood Urea Nitrogen 43H, Creatinine 1.0H, Estimat Glomerular Filtration Rate , Glucose Level 291H, Uric Acid 8.0H, Calcium Level 9.5, Phosphorus Level 3.0, Magnesium Level 2.0, Total Bilirubin < 0.2, Aspartate Amino Transf (AST/SGOT) 19, Alanine Aminotransferase (ALT/SGPT) 22, Alkaline Phosphatase 124H, C-Reactive Protein, Quantitative 15.7H, Pro-B-Type Natriuretic Peptide 3819H, Total Protein 6.4L, Albumin 2.3L, Globulin 4.1, Albumin/Globulin Ratio 0.5L Current Medications Medications (Trade) Dose Ordered Sig/Charli Route PRN Reason Start Time Stop Time Status Last Admin Dose Admin Acetaminophen (Tylenol) 650 mg Q4H PRN ORAL fever>100.5 07/09/17 14:00 08/06/17 13:59 07/10/17 17:41 Albuterol/ Ipratropium (DuoNeb 0.5-3(2.5)mg/3ml) 3 ml Q4H PRN HHN Shortness of Breath 07/09/17 14:00 07/14/17 13:59 07/10/17 09:03 Aspirin (ASA) 81 mg DAILY GT 07/10/17 09:00 08/07/17 09:59 07/10/17 09:19 Carvedilol (Coreg) 3.125 mg BID ORAL 07/09/17 18:00 08/07/17 17:59 07/10/17 17:41 Ceftriaxone Sodium 1 gm/ Dextrose 55 ml @ 110 mls/hr Q24H IVPB 07/09/17 21:00 07/16/17 20:59 07/09/17 21:17 Dextrose 1,000 ml @ 50 mls/hr Q20H IV 07/10/17 14:00 08/09/17 13:59 07/10/17 14:34 Dextrose (Dextrose 50%) STAT PRN IV Hypoglycemia 07/09/17 14:00 08/08/17 13:59 Docusate Sodium (Colace) 100 mg TWICE A DAY ORAL 07/09/17 18:00 08/07/17 17:59 07/10/17 17:42 Furosemide (Lasix) 20 mg DAILY IV 07/10/17 13:30 08/09/17 13:29 07/10/17 14:35 Heparin Sodium (Porcine) (Heparin 5000 units/ml) 5,000 units EVERY 12 HOURS SUBQ 07/09/17 21:00 08/06/17 08:59 Insulin Aspart (NovoLOG) Q6HR SUBQ 07/09/17 18:00 08/06/17 11:29 07/10/17 17:34 Morphine Sulfate (Morphine Sulfate) 2 mg Q4H PRN IVP Moderate Pain (Pain Scale 4-6) 07/09/17 14:00 07/16/17 13:59 Nitroglycerin (Ntg) 0.4 mg Every 5 Minutes PRN SL Prn Chest Pain 07/09/17 14:00 08/06/17 13:59 Ondansetron HCl (Zofran) 4 mg Q6H PRN IVP Nausea & Vomiting 07/09/17 14:00 08/06/17 13:59 Pantoprazole (Protonix) 40 mg EVERY 12 HOURS IVP 07/09/17 21:00 08/06/17 10:29 07/10/17 09:19 Polyethylene Glycol (Miralax) 17 gm DAILYPRN PRN ORAL Constipation 07/09/17 14:00 08/08/17 13:59 Temazepam (Restoril) 15 mg HSPRN PRN ORAL Insomnia 07/10/17 21:00 07/14/17 20:59 GORAN GUTIERREZ Jul 10, 2017 18:26
[2017-07-10] MEDS ORDERED: Glycopyrrolate 0.2mg/ml 1ml Vial IV PRN (18:30)
[2017-07-10 20:00] VITALS: BP 141/69
[2017-07-10] MEDS: cefTRIAXone 1 GM in D5W 55 ML IVPB SCH (20:26)
[2017-07-11] VITALS (7 sets, daily range): BP systolic 118–179; BP diastolic 66–110
[2017-07-11] MEDS: NovoLOG Insulin Flexpen SUBQ SCH ×4 (00:19→18:43)
[2017-07-11] MEDS: Docusate 100mg cap ORAL SCH ×2 (08:58→18:41)
[2017-07-11] MEDS: Aspirin Baby 81mg GT SCH (08:58)
[2017-07-11] MEDS: Pantoprazole Inj IVP SCH (08:58)
[2017-07-11] MEDS: Heparin 5000 units/ml inj SUBQ SCH ×2 (09:00→21:12)
--- NOTE | 2017-07-11 09:21 | General Progress Note ---
Assessment/Plan Status: stable Status Narrative BP elevated Assessment/Plan Status; Acute renal failure- Sepsis- likely urinary DM OOC h/o HTN PEG OBS Sz dosorder s/p Pneumonia h/o Anemia Plan: no labs today- adjust BP meds Slow Hydrate- low dose Lasix recheck CXR Avoid Nephrotoxics- Gastric support- Pulmonary toilet Monitor renal parameters and urine out put Keep BS and BP in check JIGNESH: Possible nonobstructive stones versus vascular calcifications in the right kidney. No hydronephrosis. Multiple bilateral renal cysts of varying size Subjective ROS Limited/Unobtainable: No Constitutional: Reports: malaise Allergies: Coded Allergies: HALOPERIDOL (Verified Allergy, Unknown, 08/03/10) SULFA (SULFONAMIDE ANTIBIOTICS) (Verified Allergy, Unknown, 08/03/10) Objective Last 24 Hour Vital Signs Date Time Temp Pulse Resp B/P (MAP) Pulse Ox O2 Delivery O2 Flow Rate FiO2 07/11/17 08:58 97 179/110 07/11/17 08:00 97.2 97 22 179/110 97 Nasal Cannula 2.0 07/11/17 07:20 97.9 07/11/17 04:00 97.9 78 22 137/66 99 Nasal Cannula 2.0 07/11/17 00:00 97.7 83 20 142/75 96 Nasal Cannula 2.0 07/10/17 20:20 92 20 Nasal Cannula 2.0 28 07/10/17 20:20 92 Nasal Cannula 2.0 28 07/10/17 20:20 Nasal Cannula 2.0 28 07/10/17 20:00 97.2 71 22 141/69 99 Nasal Cannula 2.0 07/10/17 17:41 75 130/76 07/10/17 16:00 97.9 75 17 130/76 99 Nasal Cannula 3.0 07/10/17 12:00 97.7 78 21 133/66 98 Nasal Cannula 3.0 Height (Feet): 5 Height (Inches): 3.00 Weight (Pounds): 188 General Appearance: no apparent distress, lethargic Cardiovascular: tachycardia Respiratory/Chest: decreased breath sounds Abdomen: soft Objective no other change ALBERTO GARCIA Jul 11, 2017 09:21
[2017-07-11] MEDS ORDERED: Lisinopril 10mg tab GT SCH (09:30)
[2017-07-11] MEDS ORDERED: Lisinopril 20mg tab GT SCH (09:30)
[2017-07-11 09:51] LABS: BASOPHILS % (AUTO) 0.4 % (0.0-2.0); EOSINOPHILS % (AUTO) 1.2 % (0.0-3.0); LYMPHOCYTES % (AUTO) 13.6 % (20.0-45.0); MEAN CORPUSCULAR HEMOGLOBIN 30.3 PG (27.0-31.0); MEAN CORPUSCULAR HGB CONC 31.1 G/DL (32.0-36.0); MEAN CORPUSCULAR VOLUME 98 FL (80-99); MEAN PLATELET VOLUME 8.9 FL (6.5-10.1); MONOCYTES % (AUTO) 9.2 % (1.0-10.0); NEUTROPHILS % (AUTO) 75.7 % (45.0-75.0); PLATELET COUNT 121 K/UL (150-450); RED BLOOD COUNT 3.92 M/UL (4.20-5.40); RED CELL DISTRIBUTION WIDTH 12.6 % (11.6-14.8); WHITE BLOOD COUNT 13.4 K/UL (4.8-10.8)
[2017-07-11 09:52] LABS: ALANINE AMINOTRANSFERASE 23 U/L (3-33); ALBUMIN/GLOBULIN RATIO 0.6 (1.0-2.7); ANION GAP 10 (5-15); ASPARTATE AMINO TRANSFERASE 17 U/L (5-40); CALCIUM 9.6 mg/dL (8.6-10.2); CARBON DIOXIDE 31 mEQ/L (20-30); CHLORIDE 104 mEQ/L (98-107); CREATININE 0.8 mg/dL (0.5-0.9); HEMOLYSIS 1; PHOSPHORUS 2.5 mg/dL (2.5-4.8); POTASSIUM 4.6 mEQ/L (3.4-4.9); SODIUM 145 mEQ/L (135-145); TOTAL PROTEIN 6.2 g/dL (6.6-8.7)
[2017-07-11 10:11] LABS: INR 0.9 (0.9-1.1); PROTHROMBIN TIME 9.6 SEC (9.30-11.50)
--- NOTE | 2017-07-11 10:23 | Infectious Diseases Prog Note ---
Assessment/Plan Assessment/Plan Assessment : The patient is an 86-year-old female with Sepsis, SP Leukocytosis, mild Rule out bacteremia. Urinary tract infection: Ecoli and P mirabilis CRP : 30 KEVYN: improving Dementia. GERD, status post PEG placement. Seizure disorder. Recent DVT. Hyperlipidemia. Hypertension. COPD. Obesity. hx of GI bleed. Osteoarthritis. Diabetes. Anemia. PLAN: Rocephin d# 3 / 7 , ok to DC w cont of ABRx ( 7.28 SP IV vancomycin and cefepime d# 3 ) Monitor CBC Monitor BMP monitor chest x-ray. Subjective Constitutional: Denies: no symptoms, fever, chills, fatigue, anorexia, drenching sweats, other Allergies: Coded Allergies: HALOPERIDOL (Verified Allergy, Unknown, 08/03/10) SULFA (SULFONAMIDE ANTIBIOTICS) (Verified Allergy, Unknown, 08/03/10) Objective Vital Signs Last 24 Hour Vital Signs Date Time Temp Pulse Resp B/P (MAP) Pulse Ox O2 Delivery O2 Flow Rate FiO2 07/11/17 09:57 144/73 07/11/17 09:57 86 144/73 07/11/17 09:46 86 144/73 07/11/17 08:58 97 179/110 07/11/17 08:00 97.2 97 22 179/110 97 Nasal Cannula 2.0 07/11/17 07:20 97.9 07/11/17 04:00 97.9 78 22 137/66 99 Nasal Cannula 2.0 07/11/17 00:00 97.7 83 20 142/75 96 Nasal Cannula 2.0 07/10/17 20:20 92 20 Nasal Cannula 2.0 28 07/10/17 20:20 92 Nasal Cannula 2.0 28 07/10/17 20:20 Nasal Cannula 2.0 28 07/10/17 20:00 97.2 71 22 141/69 99 Nasal Cannula 2.0 07/10/17 17:41 75 130/76 07/10/17 16:00 97.9 75 17 130/76 99 Nasal Cannula 3.0 07/10/17 12:00 97.7 78 21 133/66 98 Nasal Cannula 3.0 Height (Feet): 5 Height (Inches): 3.00 Weight (Pounds): 188 Respiratory/Chest: normal breath sounds Cardiovascular: regular rhythm Abdomen: no organomegaly Laboratory Tests Test 07/11/17 08:30 White Blood Count 13.4 K/UL (4.8-10.8) H Red Blood Count 3.92 M/UL (4.20-5.40) L Hemoglobin 11.9 G/DL (12.0-16.0) L Hematocrit 38.3 % (37.0-47.0) Mean Corpuscular Volume 98 FL (80-99) Mean Corpuscular Hemoglobin 30.3 PG (27.0-31.0) Mean Corpuscular Hemoglobin Concent 31.1 G/DL (32.0-36.0) L Red Cell Distribution Width 12.6 % (11.6-14.8) Platelet Count 121 K/UL (150-450) L Mean Platelet Volume 8.9 FL (6.5-10.1) Neutrophils (%) (Auto) 75.7 % (45.0-75.0) H Lymphocytes (%) (Auto) 13.6 % (20.0-45.0) L Monocytes (%) (Auto) 9.2 % (1.0-10.0) Eosinophils (%) (Auto) 1.2 % (0.0-3.0) Basophils (%) (Auto) 0.4 % (0.0-2.0) Prothrombin Time 9.6 SEC (9.30-11.50) Prothromb Time International Ratio 0.9 (0.9-1.1) Activated Partial Thromboplast Time 30 SEC (23-33) Sodium Level 145 mEQ/L (135-145) Potassium Level 4.6 mEQ/L (3.4-4.9) Chloride Level 104 mEQ/L (98-107) Carbon Dioxide Level 31 mEQ/L (20-30) H Anion Gap 10 (5-15) Blood Urea Nitrogen 36 mg/dL (7-23) H Creatinine 0.8 mg/dL (0.5-0.9) Estimat Glomerular Filtration Rate mL/min (>60) Glucose Level 326 mg/dL (74-106) H Calcium Level 9.6 mg/dL (8.6-10.2) Phosphorus Level 2.5 mg/dL (2.5-4.8) Magnesium Level 2.0 mg/dL (1.7-2.5) Total Bilirubin < 0.2 mg/dL (0.0-1.2) Aspartate Amino Transf (AST/SGOT) 17 U/L (5-40) Alanine Aminotransferase (ALT/SGPT) 23 U/L (3-33) Alkaline Phosphatase 107 U/L (35-104) H Total Protein 6.2 g/dL (6.6-8.7) L Albumin 2.4 g/dL (3.5-5.2) L Globulin 3.8 g/dL Albumin/Globulin Ratio 0.6 (1.0-2.7) L Vancomycin Level Trough Pending Current Medications Medications (Trade) Dose Ordered Sig/Charli Route PRN Reason Start Time Stop Time Status Last Admin Dose Admin Acetaminophen (Tylenol) 650 mg Q4H PRN ORAL fever>100.5 07/09/17 14:00 08/06/17 13:59 07/11/17 06:21 Albuterol/ Ipratropium (DuoNeb 0.5-3(2.5)mg/3ml) 3 ml Q4H PRN HHN Shortness of Breath 07/09/17 14:00 07/14/17 13:59 07/10/17 09:03 Amlodipine Besylate (Norvasc) 5 mg DAILY GT 07/11/17 09:30 08/10/17 09:29 07/11/17 09:57 Aspirin (ASA) 81 mg DAILY GT 07/10/17 09:00 08/07/17 09:59 07/11/17 08:58 Carvedilol (Coreg) 6.25 mg Q12HR ORAL 07/11/17 21:00 08/10/17 20:59 Ceftriaxone Sodium 1 gm/ Dextrose 55 ml @ 110 mls/hr Q24H IVPB 07/09/17 21:00 07/16/17 20:59 07/10/17 20:26 Dextrose (Dextrose 50%) STAT PRN IV Hypoglycemia 07/09/17 14:00 08/08/17 13:59 Docusate Sodium (Colace) 100 mg TWICE A DAY ORAL 07/09/17 18:00 08/07/17 17:59 07/11/17 08:58 Furosemide (Lasix) 20 mg DAILY IV 07/10/17 13:30 08/09/17 13:29 07/11/17 08:58 Glycopyrrolate (Robinul) 0.1 mg Q6H PRN IV excessive secretions 07/10/17 18:30 08/09/17 18:29 Heparin Sodium (Porcine) (Heparin 5000 units/ml) 5,000 units EVERY 12 HOURS SUBQ 07/09/17 21:00 08/06/17 08:59 Insulin Aspart (NovoLOG) Q6HR SUBQ 07/09/17 18:00 08/06/17 11:29 07/11/17 05:52 Lisinopril (Zestril) 10 mg DAILY GT 07/11/17 09:30 08/10/17 09:29 07/11/17 09:57 Morphine Sulfate (Morphine Sulfate) 2 mg Q4H PRN IVP Moderate Pain (Pain Scale 4-6) 07/09/17 14:00 07/16/17 13:59 Nitroglycerin (Ntg) 0.4 mg Every 5 Minutes PRN SL Prn Chest Pain 07/09/17 14:00 08/06/17 13:59 Ondansetron HCl (Zofran) 4 mg Q6H PRN IVP Nausea & Vomiting 07/09/17 14:00 08/06/17 13:59 Polyethylene Glycol (Miralax) 17 gm DAILYPRN PRN ORAL Constipation 07/09/17 14:00 08/08/17 13:59 Ranitidine HCl (Zantac) 150 mg TWICE A DAY GT 07/11/17 18:00 08/10/17 17:59 Temazepam (Restoril) 15 mg HSPRN PRN ORAL Insomnia 07/10/17 21:00 07/14/17 20:59 ALEXANDREA THOMAS M.D. Jul 11, 2017 10:23
--- NOTE | 2017-07-11 15:24 | Pulmonology Progress Note ---
Assessment/Plan Problems: (1) Sepsis (2) Acute encephalopathy (3) ATN (acute tubular necrosis) (4) CVA, old, aphasia (5) Seizure disorder (6) HTN (hypertension) (7) Diabetes (8) G tube feedings Assessment/Plan add robunil to control secretions continue abx check cultures check electrolytes dvt prophylaxis bun/creatinine decreasing check electrolytes Subjective ROS Limited/Unobtainable: No Constitutional: Reports: no symptoms HEENT: Repors: no symptoms Respiratory: Reports: no symptoms Cardiovascular: Reports: no symptoms Allergies: Coded Allergies: HALOPERIDOL (Verified Allergy, Unknown, 08/03/10) SULFA (SULFONAMIDE ANTIBIOTICS) (Verified Allergy, Unknown, 08/03/10) Objective Last 24 Hour Vital Signs Date Time Temp Pulse Resp B/P (MAP) Pulse Ox O2 Delivery O2 Flow Rate FiO2 07/11/17 12:06 97.6 88 20 118/72 96 Nasal Cannula 2.0 07/11/17 09:57 144/73 07/11/17 09:57 86 144/73 07/11/17 09:46 86 144/73 07/11/17 08:58 97 179/110 07/11/17 08:29 Nasal Cannula 2.0 28 07/11/17 08:29 88 20 Nasal Cannula 2.0 28 07/11/17 08:27 96 Nasal Cannula 2.0 28 07/11/17 08:00 97.2 97 22 179/110 97 Nasal Cannula 2.0 07/11/17 07:20 97.9 07/11/17 04:00 97.9 78 22 137/66 99 Nasal Cannula 2.0 07/11/17 00:00 97.7 83 20 142/75 96 Nasal Cannula 2.0 07/10/17 20:20 92 20 Nasal Cannula 2.0 28 07/10/17 20:20 92 Nasal Cannula 2.0 28 07/10/17 20:20 Nasal Cannula 2.0 28 07/10/17 20:00 97.2 71 22 141/69 99 Nasal Cannula 2.0 07/10/17 17:41 75 130/76 07/10/17 16:00 97.9 75 17 130/76 99 Nasal Cannula 3.0 Intake and Output 07/11/17 07/12/17 19:00 07:00 Intake Total 520 ml Balance 520 ml Free Water 100 ml Tube Feeding 420 ml General Appearance: WD/WN HEENT: normocephalic, atraumatic Breasts: no masses Cardiovascular: normal peripheral pulses Abdomen: normal bowel sounds, no organomegaly Extremities: no cyanosis, no clubbing Laboratory Tests 07/11/17 08:30: White Blood Count 13.4H, Red Blood Count 3.92L, Hemoglobin 11.9L, Hematocrit 38.3, Mean Corpuscular Volume 98, Mean Corpuscular Hemoglobin 30.3, Mean Corpuscular Hemoglobin Concent 31.1L, Red Cell Distribution Width 12.6, Platelet Count 121L, Mean Platelet Volume 8.9, Neutrophils (%) (Auto) 75.7H, Lymphocytes (%) (Auto) 13.6L, Monocytes (%) (Auto) 9.2, Eosinophils (%) (Auto) 1.2, Basophils (%) (Auto) 0.4, Prothrombin Time 9.6, Prothromb Time International Ratio 0.9, Activated Partial Thromboplast Time 30, Sodium Level 145, Potassium Level 4.6, Chloride Level 104, Carbon Dioxide Level 31H, Anion Gap 10, Blood Urea Nitrogen 36H, Creatinine 0.8, Estimat Glomerular Filtration Rate , Glucose Level 326H, Calcium Level 9.6, Phosphorus Level 2.5, Magnesium Level 2.0, Total Bilirubin < 0.2, Aspartate Amino Transf (AST/SGOT) 17, Alanine Aminotransferase (ALT/SGPT) 23, Alkaline Phosphatase 107H, Total Protein 6.2L, Albumin 2.4L, Globulin 3.8, Albumin/Globulin Ratio 0.6L, Vancomycin Level Trough 8.8 Current Medications Medications (Trade) Dose Ordered Sig/Charli Route PRN Reason Start Time Stop Time Status Last Admin Dose Admin Acetaminophen (Tylenol) 650 mg Q4H PRN ORAL fever>100.5 07/09/17 14:00 08/06/17 13:59 07/11/17 06:21 Albuterol/ Ipratropium (DuoNeb 0.5-3(2.5)mg/3ml) 3 ml Q4H PRN HHN Shortness of Breath 07/09/17 14:00 07/14/17 13:59 07/10/17 09:03 Amlodipine Besylate (Norvasc) 5 mg DAILY GT 07/11/17 09:30 08/10/17 09:29 07/11/17 09:57 Aspirin (ASA) 81 mg DAILY GT 07/10/17 09:00 08/07/17 09:59 07/11/17 08:58 Carvedilol (Coreg) 6.25 mg Q12HR ORAL 07/11/17 21:00 08/10/17 20:59 Ceftriaxone Sodium 1 gm/ Dextrose 55 ml @ 110 mls/hr Q24H IVPB 07/09/17 21:00 07/16/17 20:59 07/10/17 20:26 Dextrose (Dextrose 50%) STAT PRN IV Hypoglycemia 07/09/17 14:00 08/08/17 13:59 Docusate Sodium (Colace) 100 mg TWICE A DAY ORAL 07/09/17 18:00 08/07/17 17:59 07/11/17 08:58 Furosemide (Lasix) 20 mg DAILY IV 07/10/17 13:30 08/09/17 13:29 07/11/17 08:58 Glycopyrrolate (Robinul) 0.1 mg Q6H PRN IV excessive secretions 07/10/17 18:30 08/09/17 18:29 Heparin Sodium (Porcine) (Heparin 5000 units/ml) 5,000 units EVERY 12 HOURS SUBQ 07/09/17 21:00 08/06/17 08:59 Insulin Aspart (NovoLOG) Q6HR SUBQ 07/09/17 18:00 08/06/17 11:29 07/11/17 11:59 Lisinopril (Zestril) 10 mg DAILY GT 07/11/17 09:30 08/10/17 09:29 07/11/17 09:57 Morphine Sulfate (Morphine Sulfate) 2 mg Q4H PRN IVP Moderate Pain (Pain Scale 4-6) 07/09/17 14:00 07/16/17 13:59 Nitroglycerin (Ntg) 0.4 mg Every 5 Minutes PRN SL Prn Chest Pain 07/09/17 14:00 08/06/17 13:59 Ondansetron HCl (Zofran) 4 mg Q6H PRN IVP Nausea & Vomiting 07/09/17 14:00 08/06/17 13:59 Polyethylene Glycol (Miralax) 17 gm DAILYPRN PRN ORAL Constipation 07/09/17 14:00 08/08/17 13:59 Ranitidine HCl (Zantac) 150 mg TWICE A DAY GT 07/11/17 18:00 08/10/17 17:59 Temazepam (Restoril) 15 mg HSPRN PRN ORAL Insomnia 07/10/17 21:00 07/14/17 20:59 GORAN GUTIERREZ Jul 11, 2017 15:24
[2017-07-11 15:29] LABS: ABG PCO2 53.1 mmHg (35.0-45.0)
[2017-07-11 15:30] LABS: ABG ALLEN TEST POSITIVE; ABG BASE EXCESS 9.4
[2017-07-11] MEDS ORDERED: Nitroglycerin Subl 0.4mg tab SL PRN (20:45)
[2017-07-11] MEDS ORDERED: Glycopyrrolate 0.2mg/ml 1ml Vial IV PRN (21:00)
[2017-07-11] MEDS ORDERED: Morphine Sulfate 2mg/ml Inj IVP PRN (21:00)
[2017-07-11] MEDS ORDERED: Miralax 17gm pkt ORAL PRN (21:00)
[2017-07-11] MEDS ORDERED: Albuterol/Ipratropium 3ml neb HHN PRN (21:00)
[2017-07-11] MEDS ORDERED: Carvedilol 6.25mg Tab ORAL SCH (21:00)
[2017-07-11] MEDS: cefTRIAXone 1 GM in D5W 55 ML IVPB SCH (21:10)
[2017-07-11] MEDS: Carvedilol 6.25mg Tab GT SCH (21:11)
[2017-07-12] VITALS (7 sets, daily range): BP systolic 122–160; BP diastolic 63–109
[2017-07-12] MEDS: NovoLOG Insulin Flexpen SUBQ SCH ×4 (00:38→17:20)
[2017-07-12 08:08] LABS: BASOPHILS % (AUTO) 0.2 % (0.0-2.0); EOSINOPHILS % (AUTO) 1.6 % (0.0-3.0); LYMPHOCYTES % (AUTO) 18.4 % (20.0-45.0); MEAN CORPUSCULAR HEMOGLOBIN 30.7 PG (27.0-31.0); MEAN CORPUSCULAR HGB CONC 31.2 G/DL (32.0-36.0); MEAN CORPUSCULAR VOLUME 98 FL (80-99); MEAN PLATELET VOLUME 9.3 FL (6.5-10.1); MONOCYTES % (AUTO) 9.3 % (1.0-10.0); NEUTROPHILS % (AUTO) 70.5 % (45.0-75.0); PLATELET COUNT 135 K/UL (150-450)
[2017-07-12 08:51] LABS: ALANINE AMINOTRANSFERASE 24 U/L (3-33); ALBUMIN/GLOBULIN RATIO 0.6 (1.0-2.7); ANION GAP 9 (5-15); ASPARTATE AMINO TRANSFERASE 21 U/L (5-40); CALCIUM 10.1 mg/dL (8.6-10.2); CARBON DIOXIDE 33 mEQ/L (20-30); CHLORIDE 106 mEQ/L (98-107); CREATININE 0.8 mg/dL (0.5-0.9); CRP QUANT 10.7 mg/dL (< 0.5); HEMOLYSIS 6; PHOSPHORUS 2.5 mg/dL (2.5-4.8); POTASSIUM 4.5 mEQ/L (3.4-4.9); SODIUM 148 mEQ/L (135-145); TOTAL PROTEIN 6.2 g/dL (6.6-8.7)
[2017-07-12] MEDS ORDERED: Lisinopril 10mg tab GT SCH (09:00)
--- NOTE | 2017-07-12 09:25 | Diagnostic Imaging Report ---
Indication: Shortness of breath Comparison: 07/09/2017 Findings: Single view the chest is obtained. Exam is suboptimal secondary to decreased inspiration. Cardiac size is normal. Pulmonary vasculature is normal. Lungs are clear. Again noted is marked prominence of the upper mediastinum which has been previously shown to be due to enlarged multinodular thyroid goiter. No acute osseous abnormalities. Impression: No definite acute chest disease No significant change from prior exam 2 days earlier.
--- NOTE | 2017-07-12 09:28 | Infectious Diseases Prog Note ---
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 CVA & aphasia P; Continue Rocephin day 02/15 Subjective ROS Limited/Unobtainable: Yes Allergies: Coded Allergies: HALOPERIDOL (Verified Allergy, Unknown, 08/03/10) SULFA (SULFONAMIDE ANTIBIOTICS) (Verified Allergy, Unknown, 08/03/10) Objective Vital Signs Last 24 Hour Vital Signs Date Time Temp Pulse Resp B/P (MAP) Pulse Ox O2 Delivery O2 Flow Rate FiO2 07/12/17 08:00 98.0 84 20 148/83 98 Nasal Cannula 2.0 07/12/17 07:57 Nasal Cannula 2.0 28 07/12/17 07:57 96 Nasal Cannula 2.0 28 07/12/17 07:56 83 20 Nasal Cannula 2.0 28 07/12/17 04:00 82 07/12/17 04:00 97.9 83 20 147/76 97 Nasal Cannula 3.0 07/12/17 00:00 85 07/12/17 00:00 97.6 86 20 135/71 96 Nasal Cannula 3.0 07/11/17 21:11 85 153/80 07/11/17 20:00 97.2 85 20 153/80 98 Nasal Cannula 3.0 07/11/17 20:00 84 07/11/17 19:52 Nasal Cannula 2.0 28 07/11/17 19:51 85 22 Nasal Cannula 2.0 28 07/11/17 19:51 96 Nasal Cannula 2.0 28 07/11/17 19:02 83 07/11/17 18:58 83 07/11/17 15:45 98.2 79 19 123/69 96 Nasal Cannula 2.0 07/11/17 12:06 97.6 88 20 118/72 96 Nasal Cannula 2.0 07/11/17 09:57 144/73 07/11/17 09:57 86 144/73 07/11/17 09:46 86 144/73 Height (Feet): 5 Height (Inches): 3.00 Weight (Pounds): 186 General Appearance: no acute distress HEENT: mucous membranes moist Respiratory/Chest: lungs clear Cardiovascular: normal rate Abdomen: soft, non tender, other - GT feeding Extremities: no edema Neurologic/Psychiatric: disoriented, other - moaning Laboratory Tests Test 07/11/17 15:18 07/12/17 06:10 Arterial Blood pH 7.430 (7.350-7.450) Arterial Blood Partial Pressure CO2 53.1 mmHg (35.0-45.0) H Arterial Blood Partial Pressure O2 93.3 mmHg (75.0-100.0) Arterial Blood HCO3 35.2 mmol/L (22.0-26.0) H Arterial Blood Oxygen Saturation 97.1 % (92.0-98.0) Arterial Blood Base Excess 9.4 Corey Test Positive White Blood Count 12.0 K/UL (4.8-10.8) H Red Blood Count 3.80 M/UL (4.20-5.40) L Hemoglobin 11.6 G/DL (12.0-16.0) L Hematocrit 37.3 % (37.0-47.0) Mean Corpuscular Volume 98 FL (80-99) Mean Corpuscular Hemoglobin 30.7 PG (27.0-31.0) Mean Corpuscular Hemoglobin Concent 31.2 G/DL (32.0-36.0) L Red Cell Distribution Width 13.0 % (11.6-14.8) Platelet Count 135 K/UL (150-450) L Mean Platelet Volume 9.3 FL (6.5-10.1) Neutrophils (%) (Auto) 70.5 % (45.0-75.0) Lymphocytes (%) (Auto) 18.4 % (20.0-45.0) L Monocytes (%) (Auto) 9.3 % (1.0-10.0) Eosinophils (%) (Auto) 1.6 % (0.0-3.0) Basophils (%) (Auto) 0.2 % (0.0-2.0) Sodium Level 148 mEQ/L (135-145) H Potassium Level 4.5 mEQ/L (3.4-4.9) Chloride Level 106 mEQ/L (98-107) Carbon Dioxide Level 33 mEQ/L (20-30) H Anion Gap 9 (5-15) Blood Urea Nitrogen 37 mg/dL (7-23) H Creatinine 0.8 mg/dL (0.5-0.9) Estimat Glomerular Filtration Rate mL/min (>60) Glucose Level 253 mg/dL (74-106) H Calcium Level 10.1 mg/dL (8.6-10.2) Phosphorus Level 2.5 mg/dL (2.5-4.8) Magnesium Level 2.0 mg/dL (1.7-2.5) Total Bilirubin < 0.2 mg/dL (0.0-1.2) Aspartate Amino Transf (AST/SGOT) 21 U/L (5-40) Alanine Aminotransferase (ALT/SGPT) 24 U/L (3-33) Alkaline Phosphatase 107 U/L (35-104) H C-Reactive Protein, Quantitative 10.7 mg/dL (< 0.5) H Pro-B-Type Natriuretic Peptide 3772 pg/mL (0-450) H Total Protein 6.2 g/dL (6.6-8.7) L Albumin 2.4 g/dL (3.5-5.2) L Globulin 3.8 g/dL Albumin/Globulin Ratio 0.6 (1.0-2.7) L Current Medications Medications (Trade) Dose Ordered Sig/Charli Route PRN Reason Start Time Stop Time Status Last Admin Dose Admin Acetaminophen (Tylenol) 650 mg Q4H PRN ORAL fever>100.5 07/11/17 21:00 08/06/17 20:59 Albuterol/ Ipratropium (DuoNeb 0.5-3(2.5)mg/3ml) 3 ml Q4H PRN HHN Shortness of Breath 07/11/17 21:00 07/14/17 20:59 Amlodipine Besylate (Norvasc) 5 mg DAILY GT 07/12/17 09:00 08/10/17 09:29 Aspirin (ASA) 81 mg DAILY GT 07/12/17 09:00 08/07/17 09:59 Carvedilol (Coreg) 6.25 mg Q12HR GT 07/11/17 21:00 08/10/17 20:59 07/11/17 21:11 Ceftriaxone Sodium 1 gm/ Dextrose 55 ml @ 110 mls/hr Q24H IVPB 07/11/17 21:00 07/16/17 20:59 07/11/17 21:10 Dextrose (Dextrose 50%) STAT PRN IV Hypoglycemia 07/11/17 21:00 08/10/17 20:59 Docusate Sodium (Colace) 100 mg TWICE A DAY GT 07/12/17 09:00 08/07/17 17:59 Furosemide (Lasix) 20 mg DAILY IV 07/12/17 09:00 08/09/17 13:29 Glycopyrrolate (Robinul) 0.1 mg Q6H PRN IV excessive secretions 07/11/17 21:00 08/10/17 20:59 Heparin Sodium (Porcine) (Heparin 5000 units/ml) 5,000 units EVERY 12 HOURS SUBQ 07/11/17 21:00 08/06/17 08:59 07/11/17 21:12 Insulin Aspart (NovoLOG) Q6HR SUBQ 07/12/17 00:00 08/06/17 11:29 07/12/17 06:07 Lisinopril (Zestril) 10 mg DAILY GT 07/12/17 09:00 08/10/17 09:29 Morphine Sulfate (Morphine Sulfate) 2 mg Q4H PRN IVP Moderate Pain (Pain Scale 4-6) 07/11/17 21:00 07/16/17 20:59 Nitroglycerin (Ntg) 0.4 mg Every 5 Minutes PRN SL Prn Chest Pain 07/11/17 20:45 08/06/17 13:59 Ondansetron HCl (Zofran) 4 mg Q6H PRN IVP Nausea & Vomiting 07/11/17 21:00 08/10/17 20:59 Polyethylene Glycol (Miralax) 17 gm DAILYPRN PRN ORAL Constipation 07/11/17 21:00 08/10/17 20:59 Ranitidine HCl (Zantac) 150 mg TWICE A DAY GT 07/12/17 09:00 08/10/17 17:59 Temazepam (Restoril) 15 mg HSPRN PRN ORAL Insomnia 07/11/17 21:00 07/14/17 20:59 ANNAMARIA COTE Jul 12, 2017 09:28
[2017-07-12] MEDS: Aspirin Baby 81mg GT SCH (09:31)
[2017-07-12] MEDS: Docusate 100mg/10ml Liq GT SCH ×2 (09:31→17:15)
[2017-07-12] MEDS: Carvedilol 6.25mg Tab GT SCH ×2 (09:32→21:12)
[2017-07-12] MEDS: Heparin 5000 units/ml inj SUBQ SCH (09:40)
--- NOTE | 2017-07-12 12:01 | Pulmonology Progress Note ---
Assessment/Plan Problems: (1) Sepsis (2) Acute encephalopathy (3) ATN (acute tubular necrosis) (4) CVA, old, aphasia (5) Seizure disorder (6) HTN (hypertension) (7) Diabetes (8) G tube feedings Assessment/Plan had episode of dyspnea yesterday, was transferred to [facility] (formerly [facility]), CXR unchaged, continue abx, ID following check cultures check electrolytes bun/creatinine decreasing check electrolytes Subjective ROS Limited/Unobtainable: No Constitutional: Reports: no symptoms HEENT: Repors: no symptoms Respiratory: Reports: no symptoms Allergies: Coded Allergies: HALOPERIDOL (Verified Allergy, Unknown, 08/03/10) SULFA (SULFONAMIDE ANTIBIOTICS) (Verified Allergy, Unknown, 08/03/10) Objective Last 24 Hour Vital Signs Date Time Temp Pulse Resp B/P (MAP) Pulse Ox O2 Delivery O2 Flow Rate FiO2 07/12/17 09:32 84 148/83 07/12/17 09:32 84 148/83 07/12/17 09:31 148/83 07/12/17 08:00 84 07/12/17 08:00 98.0 84 20 148/83 98 Nasal Cannula 2.0 07/12/17 07:57 Nasal Cannula 2.0 28 07/12/17 07:57 96 Nasal Cannula 2.0 28 07/12/17 07:56 83 20 Nasal Cannula 2.0 28 07/12/17 04:00 82 07/12/17 04:00 97.9 83 20 147/76 97 Nasal Cannula 3.0 07/12/17 00:00 85 07/12/17 00:00 97.6 86 20 135/71 96 Nasal Cannula 3.0 07/11/17 21:11 85 153/80 07/11/17 20:00 97.2 85 20 153/80 98 Nasal Cannula 3.0 07/11/17 20:00 84 07/11/17 19:52 Nasal Cannula 2.0 28 07/11/17 19:51 85 22 Nasal Cannula 2.0 28 07/11/17 19:51 96 Nasal Cannula 2.0 28 07/11/17 19:02 83 07/11/17 18:58 83 07/11/17 15:45 98.2 79 19 123/69 96 Nasal Cannula 2.0 07/11/17 12:06 97.6 88 20 118/72 96 Nasal Cannula 2.0 Intake and Output 07/12/17 07/13/17 19:00 07:00 Intake Total 170 ml Balance 170 ml Free Water 100 ml Tube Feeding 70 ml General Appearance: WD/WN HEENT: normocephalic, atraumatic Respiratory/Chest: chest wall non-tender, lungs clear Breasts: no masses Cardiovascular: normal peripheral pulses, no JVD Abdomen: soft, non tender Genitourinary: normal external genitalia Extremities: no cyanosis Skin: no rash 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, no motor/sensory deficits Laboratory Tests 07/11/17 15:18: Arterial Blood pH 7.430, Arterial Blood Partial Pressure CO2 53.1H, Arterial Blood Partial Pressure O2 93.3, Arterial Blood HCO3 35.2H, Arterial Blood Oxygen Saturation 97.1, Arterial Blood Base Excess 9.4, Corey Test Positive 07/12/17 06:10: White Blood Count 12.0H, Red Blood Count 3.80L, Hemoglobin 11.6L, Hematocrit 37.3, Mean Corpuscular Volume 98, Mean Corpuscular Hemoglobin 30.7, Mean Corpuscular Hemoglobin Concent 31.2L, Red Cell Distribution Width 13.0, Platelet Count 135L, Mean Platelet Volume 9.3, Neutrophils (%) (Auto) 70.5, Lymphocytes (%) (Auto) 18.4L, Monocytes (%) (Auto) 9.3, Eosinophils (%) (Auto) 1.6, Basophils (%) (Auto) 0.2, Sodium Level 148H, Potassium Level 4.5, Chloride Level 106, Carbon Dioxide Level 33H, Anion Gap 9, Blood Urea Nitrogen 37H, Creatinine 0.8, Estimat Glomerular Filtration Rate , Glucose Level 253H, Calcium Level 10.1, Phosphorus Level 2.5, Magnesium Level 2.0, Total Bilirubin < 0.2, Aspartate Amino Transf (AST/SGOT) 21, Alanine Aminotransferase (ALT/SGPT ) 24, Alkaline Phosphatase 107H, C-Reactive Protein, Quantitative 10.7H, Pro-B- Type Natriuretic Peptide 3772H, Total Protein 6.2L, Albumin 2.4L, Globulin 3.8, Albumin/Globulin Ratio 0.6L Current Medications Medications (Trade) Dose Ordered Sig/Charli Route PRN Reason Start Time Stop Time Status Last Admin Dose Admin Acetaminophen (Tylenol) 650 mg Q4H PRN ORAL fever>100.5 07/11/17 21:00 08/06/17 20:59 Albuterol/ Ipratropium (DuoNeb 0.5-3(2.5)mg/3ml) 3 ml Q4H PRN HHN Shortness of Breath 07/11/17 21:00 07/14/17 20:59 Amlodipine Besylate (Norvasc) 5 mg DAILY GT 07/12/17 09:00 08/10/17 09:29 07/12/17 09:32 Aspirin (ASA) 81 mg DAILY GT 07/12/17 09:00 08/07/17 09:59 07/12/17 09:31 Carvedilol (Coreg) 6.25 mg Q12HR GT 07/11/17 21:00 08/10/17 20:59 07/12/17 09:32 Ceftriaxone Sodium 1 gm/ Dextrose 55 ml @ 110 mls/hr Q24H IVPB 07/11/17 21:00 07/16/17 20:59 07/11/17 21:10 Dextrose (Dextrose 50%) STAT PRN IV Hypoglycemia 07/11/17 21:00 08/10/17 20:59 Docusate Sodium (Colace) 100 mg TWICE A DAY GT 07/12/17 09:00 08/07/17 17:59 07/12/17 09:31 Furosemide (Lasix) 20 mg DAILY IV 07/12/17 09:00 08/09/17 13:29 07/12/17 09:32 Glycopyrrolate (Robinul) 0.1 mg Q6H PRN IV excessive secretions 07/11/17 21:00 08/10/17 20:59 Insulin Aspart (NovoLOG) Q6HR SUBQ 07/12/17 00:00 08/06/17 11:29 07/12/17 06:07 Lisinopril (Zestril) 10 mg DAILY GT 07/12/17 09:00 08/10/17 09:29 07/12/17 09:31 Morphine Sulfate (Morphine Sulfate) 2 mg Q4H PRN IVP Moderate Pain (Pain Scale 4-6) 07/11/17 21:00 07/16/17 20:59 Nitroglycerin (Ntg) 0.4 mg Every 5 Minutes PRN SL Prn Chest Pain 07/11/17 20:45 08/06/17 13:59 Ondansetron HCl (Zofran) 4 mg Q6H PRN IVP Nausea & Vomiting 07/11/17 21:00 08/10/17 20:59 Polyethylene Glycol (Miralax) 17 gm DAILYPRN PRN ORAL Constipation 07/11/17 21:00 08/10/17 20:59 Ranitidine HCl (Zantac) 150 mg TWICE A DAY GT 07/12/17 09:00 08/10/17 17:59 07/12/17 09:32 Temazepam (Restoril) 15 mg HSPRN PRN ORAL Insomnia 07/11/17 21:00 07/14/17 20:59 GORAN GUITERREZ Jul 12, 2017 12:01
--- NOTE | 2017-07-12 13:06 | General Progress Note ---
Assessment/Plan Status: stable Status Narrative back on monitor bed Assessment/Plan Status; Acute renal failure- Sepsis- likely urinary DM OOC h/o HTN PEG OBS Sz dosorder s/p Pneumonia h/o Anemia Plan: adjust BP meds Slow Hydrate- low dose Lasix recheck CXR Avoid Nephrotoxics- Gastric support- Pulmonary toilet Monitor renal parameters and urine out put Keep BS and BP in check JIGNESH: Possible nonobstructive stones versus vascular calcifications in the right kidney. No hydronephrosis. Multiple bilateral renal cysts of varying size Subjective ROS Limited/Unobtainable: No Constitutional: Reports: malaise Allergies: Coded Allergies: HALOPERIDOL (Verified Allergy, Unknown, 08/03/10) SULFA (SULFONAMIDE ANTIBIOTICS) (Verified Allergy, Unknown, 08/03/10) Objective Last 24 Hour Vital Signs Date Time Temp Pulse Resp B/P (MAP) Pulse Ox O2 Delivery O2 Flow Rate FiO2 07/12/17 12:00 97.9 86 21 144/109 98 Nasal Cannula 2.0 07/12/17 09:32 84 148/83 07/12/17 09:32 84 148/83 07/12/17 09:31 148/83 07/12/17 08:00 84 07/12/17 08:00 98.0 84 20 148/83 98 Nasal Cannula 2.0 07/12/17 07:57 Nasal Cannula 2.0 28 07/12/17 07:57 96 Nasal Cannula 2.0 28 07/12/17 07:56 83 20 Nasal Cannula 2.0 28 07/12/17 04:00 82 07/12/17 04:00 97.9 83 20 147/76 97 Nasal Cannula 3.0 07/12/17 00:00 85 07/12/17 00:00 97.6 86 20 135/71 96 Nasal Cannula 3.0 07/11/17 21:11 85 153/80 07/11/17 20:00 97.2 85 20 153/80 98 Nasal Cannula 3.0 07/11/17 20:00 84 07/11/17 19:52 Nasal Cannula 2.0 28 07/11/17 19:51 85 22 Nasal Cannula 2.0 28 07/11/17 19:51 96 Nasal Cannula 2.0 28 07/11/17 19:02 83 07/11/17 18:58 83 07/11/17 15:45 98.2 79 19 123/69 96 Nasal Cannula 2.0 Intake and Output 07/12/17 07/13/17 19:00 07:00 Intake Total 170 ml Balance 170 ml Free Water 100 ml Tube Feeding 70 ml Laboratory Tests 07/11/17 15:18: Arterial Blood pH 7.430, Arterial Blood Partial Pressure CO2 53.1H, Arterial Blood Partial Pressure O2 93.3, Arterial Blood HCO3 35.2H, Arterial Blood Oxygen Saturation 97.1, Arterial Blood Base Excess 9.4, Corey Test Positive 07/12/17 06:10: White Blood Count 12.0H, Red Blood Count 3.80L, Hemoglobin 11.6L, Hematocrit 37.3, Mean Corpuscular Volume 98, Mean Corpuscular Hemoglobin 30.7, Mean Corpuscular Hemoglobin Concent 31.2L, Red Cell Distribution Width 13.0, Platelet Count 135L, Mean Platelet Volume 9.3, Neutrophils (%) (Auto) 70.5, Lymphocytes (%) (Auto) 18.4L, Monocytes (%) (Auto) 9.3, Eosinophils (%) (Auto) 1.6, Basophils (%) (Auto) 0.2, Sodium Level 148H, Potassium Level 4.5, Chloride Level 106, Carbon Dioxide Level 33H, Anion Gap 9, Blood Urea Nitrogen 37H, Creatinine 0.8, Estimat Glomerular Filtration Rate , Glucose Level 253H, Calcium Level 10.1, Phosphorus Level 2.5, Magnesium Level 2.0, Total Bilirubin < 0.2, Aspartate Amino Transf (AST/SGOT) 21, Alanine Aminotransferase (ALT/SGPT ) 24, Alkaline Phosphatase 107H, C-Reactive Protein, Quantitative 10.7H, Pro-B- Type Natriuretic Peptide 3772H, Total Protein 6.2L, Albumin 2.4L, Globulin 3.8, Albumin/Globulin Ratio 0.6L Height (Feet): 5 Height (Inches): 3.00 Weight (Pounds): 186 General Appearance: no apparent distress, confused Cardiovascular: normal rate Respiratory/Chest: decreased breath sounds Abdomen: soft Objective no other change ALBERTO GARCIA Jul 12, 2017 13:05
[2017-07-12] MEDS ORDERED: Sterile Water Irrig 1000ml IRRIG ONE (15:39)
[2017-07-12] MEDS ORDERED: NS 275ml ONE (15:39)
[2017-07-12] MEDS: Lisinopril 10mg tab GT SCH (17:15)
--- NOTE | 2017-07-12 18:57 | Cardiology Report ---
APPROVED REPORT EXAM: Two-dimensional and M-mode echocardiogram with Doppler and color Doppler. INDICATION Congestive Heart Failure M-Mode DIMENSIONS IVSd1.6 (0.7-1.1cm)Left Atrium (MM)5.2 (1.6-4.0cm) LVDd5.7 (3.5-5.6cm)Aortic Root3.0 (2.0-3.7cm) PWd1.2 (0.7-1.1cm)Aortic Cusp Exc.1.8 (1.5-2.0cm) LVDs3.6 (2.5-4.0cm) PWs2.2 cm Technically difficult study due to poor acoustical windows. Normal left ventricular chamber size. Mid and basal septal hypokinesis. Left ventricular ejection fraction estimated to be 55-60%. Mild left ventricular hypertrophy. No evidence of pericardial or pleural effusion. Right cardiac chamber sizes are within normal limits. Mild left atrial enlargement by 2D. Focal aortic valve sclerosis with adequate cusp excursion. Thickened mitral valve leaflets with normal excursion. Mild mitral annulus and aortic root calcification. Pulmonic valve not well visualized. Normal tricuspid valve structure. IVC is not obtainable. A color flow and spectral Doppler study was performed and revealed: No aortic regurgitation. No mitral regurgitation. Mitral diastolic velocities suggest reduced left ventricular relaxation c/w diastolic dysfunction grade 1. No tricuspid regurgitation.
[2017-07-12] MEDS: cefTRIAXone 1 GM in D5W 55 ML IVPB SCH (21:12)
[2017-07-13] MEDS: NovoLOG Insulin Flexpen SUBQ SCH ×2 (00:36→05:37)
[2017-07-13 04:32] VITALS: BP 148/76
[2017-07-13 07:54] LABS: BASOPHILS % (AUTO) 0.3 % (0.0-2.0); EOSINOPHILS % (AUTO) 1.4 % (0.0-3.0); LYMPHOCYTES % (AUTO) 17.9 % (20.0-45.0); MEAN CORPUSCULAR HEMOGLOBIN 31.9 PG (27.0-31.0); MEAN CORPUSCULAR VOLUME 97 FL (80-99); MEAN PLATELET VOLUME 8.9 FL (6.5-10.1); MONOCYTES % (AUTO) 7.4 % (1.0-10.0); NEUTROPHILS % (AUTO) 73.1 % (45.0-75.0); PLATELET COUNT 134 K/UL (150-450); RED BLOOD COUNT 3.76 M/UL (4.20-5.40); RED CELL DISTRIBUTION WIDTH 12.7 % (11.6-14.8); WHITE BLOOD COUNT 11.7 K/UL (4.8-10.8)
[2017-07-13 08:00] VITALS: BP 134/72
[2017-07-13 08:19] LABS: ALANINE AMINOTRANSFERASE 25 U/L (3-33); ALBUMIN/GLOBULIN RATIO 0.6 (1.0-2.7); ANION GAP 8 (5-15); ASPARTATE AMINO TRANSFERASE 21 U/L (5-40); CALCIUM 10.6 mg/dL (8.6-10.2); CARBON DIOXIDE 34 mEQ/L (20-30); CHLORIDE 107 mEQ/L (98-107); CREATININE 0.8 mg/dL (0.5-0.9); HEMOLYSIS 1; POTASSIUM 4.8 mEQ/L (3.4-4.9); SODIUM 149 mEQ/L (135-145); TOTAL PROTEIN 6.3 g/dL (6.6-8.7)
[2017-07-13] MEDS: Docusate 100mg/10ml Liq GT SCH (08:33)
[2017-07-13] MEDS: Lisinopril 10mg tab GT SCH (08:34)
[2017-07-13] MEDS: Carvedilol 6.25mg Tab GT SCH (08:34)
[2017-07-13] MEDS: Aspirin Baby 81mg GT SCH (08:34)
[2017-07-13 09:01] LABS: CRP QUANT 7.7 mg/dL (< 0.5); MAGNESIUM 2.5 mg/dL (1.7-2.5); PHOSPHORUS 2.8 mg/dL (2.5-4.8); URIC ACID 6.5 mg/dL (3.0-7.5)
[2017-07-13] MEDS ORDERED: Tubing IV Secondary IV ONE ×2 (10:17→14:49)
[2017-07-13] MEDS ORDERED: Sterile Water Irrig 1000ml IRRIG ONE (10:17)
--- NOTE | 2017-07-13 10:26 | Infectious Diseases Prog Note ---
Assessment/Plan Assessment/Plan Assesment: Urinary tract infection: Ecoli and P mirabilis (S.Ceftriaxone) -07/07 U/a WBC too many to count, nit +; ucx >100K e.coli (S ceftriaxone, R. cipro and bactrim), 40-50 K P. mirabilis (vega S) Leukocytosis- improving -Bcx Neg x4 07/07 -CXR: no acute disease CRP : 30 KEVYN: resolved -Renal us: Possible nonobstructive stones versus vascular calcifications in the right kidney.No hydronephrosis. Multiple bilateral renal cysts of varying size Dementia. GERD, status post PEG placement. Seizure disorder. Recent DVT. Hyperlipidemia. Hypertension. COPD. Obesity. hx of GI bleed. Osteoarthritis. Diabetes. Anemia. PLAN: - Rocephin d# 6 / 7 ( 7.28 SP IV vancomycin and cefepime d# 3 ) -Monitor CBC/BMP, temperatures -Aspiration precautions Discussed with RN. Subjective Allergies: Coded Allergies: HALOPERIDOL (Verified Allergy, Unknown, 08/03/10) SULFA (SULFONAMIDE ANTIBIOTICS) (Verified Allergy, Unknown, 08/03/10) Subjective afebrile VSS at 2L NC leukocytosis improving, Bcx neg Objective Vital Signs Last 24 Hour Vital Signs Date Time Temp Pulse Resp B/P (MAP) Pulse Ox O2 Delivery O2 Flow Rate FiO2 07/13/17 08:34 134/72 07/13/17 08:34 84 134/72 07/13/17 08:34 84 134/72 07/13/17 08:00 98.2 84 20 134/72 97 Nasal Cannula 2.0 07/13/17 08:00 79 07/13/17 04:32 97.9 85 20 148/76 99 Nasal Cannula 2.0 07/13/17 04:00 80 07/13/17 00:00 81 07/12/17 23:46 97.7 81 20 129/63 98 Nasal Cannula 2.0 07/12/17 21:12 83 122/67 07/12/17 21:05 Nasal Cannula 2.0 28 07/12/17 21:05 99 Nasal Cannula 2.0 28 07/12/17 21:05 83 16 Nasal Cannula 2.0 28 07/12/17 20:00 98.1 83 20 122/67 99 Nasal Cannula 2.0 07/12/17 20:00 84 07/12/17 17:15 160/91 07/12/17 16:00 89 07/12/17 16:00 98.8 89 21 160/91 98 Nasal Cannula 2.0 07/12/17 12:00 97.9 86 21 144/109 98 Nasal Cannula 2.0 07/12/17 12:00 87 Height (Feet): 5 Height (Inches): 3.00 Weight (Pounds): 191 Objective General Appearance: no acute distress HEENT: mucous membranes moist Respiratory/Chest: lungs clear Cardiovascular: normal rate Abdomen: soft, non tender, other - GT feeding Extremities: no edema Neurologic/Psychiatric: disoriented, other - moaning reviewed Laboratory Tests Test 07/13/17 07:05 White Blood Count 11.7 K/UL (4.8-10.8) H Red Blood Count 3.76 M/UL (4.20-5.40) L Hemoglobin 12.0 G/DL (12.0-16.0) Hematocrit 36.4 % (37.0-47.0) L Mean Corpuscular Volume 97 FL (80-99) Mean Corpuscular Hemoglobin 31.9 PG (27.0-31.0) H Mean Corpuscular Hemoglobin Concent 33.0 G/DL (32.0-36.0) Red Cell Distribution Width 12.7 % (11.6-14.8) Platelet Count 134 K/UL (150-450) L Mean Platelet Volume 8.9 FL (6.5-10.1) Neutrophils (%) (Auto) 73.1 % (45.0-75.0) Lymphocytes (%) (Auto) 17.9 % (20.0-45.0) L Monocytes (%) (Auto) 7.4 % (1.0-10.0) Eosinophils (%) (Auto) 1.4 % (0.0-3.0) Basophils (%) (Auto) 0.3 % (0.0-2.0) Sodium Level 149 mEQ/L (135-145) H Potassium Level 4.8 mEQ/L (3.4-4.9) Chloride Level 107 mEQ/L (98-107) Carbon Dioxide Level 34 mEQ/L (20-30) H Anion Gap 8 (5-15) Blood Urea Nitrogen 39 mg/dL (7-23) H Creatinine 0.8 mg/dL (0.5-0.9) Estimat Glomerular Filtration Rate mL/min (>60) Glucose Level 255 mg/dL (74-106) H Uric Acid 6.5 mg/dL (3.0-7.5) Calcium Level 10.6 mg/dL (8.6-10.2) H Phosphorus Level 2.8 mg/dL (2.5-4.8) Magnesium Level 2.5 mg/dL (1.7-2.5) Total Bilirubin < 0.2 mg/dL (0.0-1.2) Aspartate Amino Transf (AST/SGOT) 21 U/L (5-40) Alanine Aminotransferase (ALT/SGPT) 25 U/L (3-33) Alkaline Phosphatase 108 U/L (35-104) H C-Reactive Protein, Quantitative 7.7 mg/dL (< 0.5) H Pro-B-Type Natriuretic Peptide 2911 pg/mL (0-450) H Total Protein 6.3 g/dL (6.6-8.7) L Albumin 2.4 g/dL (3.5-5.2) L Globulin 3.9 g/dL Albumin/Globulin Ratio 0.6 (1.0-2.7) L Current Medications Medications (Trade) Dose Ordered Sig/Charli Route PRN Reason Start Time Stop Time Status Last Admin Dose Admin Acetaminophen (Tylenol) 650 mg Q4H PRN ORAL fever>100.5 07/11/17 21:00 08/06/17 20:59 Albuterol/ Ipratropium (DuoNeb 0.5-3(2.5)mg/3ml) 3 ml Q4H PRN HHN Shortness of Breath 07/11/17 21:00 07/14/17 20:59 Amlodipine Besylate (Norvasc) 5 mg DAILY GT 07/12/17 09:00 08/10/17 09:29 07/13/17 08:34 Aspirin (ASA) 81 mg DAILY GT 07/12/17 09:00 08/07/17 09:59 07/13/17 08:34 Carvedilol (Coreg) 6.25 mg Q12HR GT 07/11/17 21:00 08/10/17 20:59 07/13/17 08:34 Ceftriaxone Sodium 1 gm/ Dextrose 55 ml @ 110 mls/hr Q24H IVPB 07/11/17 21:00 07/16/17 20:59 07/12/17 21:12 Dextrose (Dextrose 50%) STAT PRN IV Hypoglycemia 07/11/17 21:00 08/10/17 20:59 Docusate Sodium (Colace) 100 mg TWICE A DAY GT 07/12/17 09:00 08/07/17 17:59 07/13/17 08:33 Furosemide (Lasix) 20 mg DAILY IV 07/12/17 09:00 08/09/17 13:29 07/13/17 08:34 Glycopyrrolate (Robinul) 0.1 mg Q6H PRN IV excessive secretions 07/11/17 21:00 08/10/17 20:59 Insulin Aspart (NovoLOG) Q6HR SUBQ 07/12/17 00:00 08/06/17 11:29 07/13/17 05:37 Lisinopril (Zestril) 10 mg BID GT 07/12/17 18:00 08/10/17 09:29 07/13/17 08:34 Morphine Sulfate (Morphine Sulfate) 2 mg Q4H PRN IVP Moderate Pain (Pain Scale 4-6) 07/11/17 21:00 07/16/17 20:59 Nitroglycerin (Ntg) 0.4 mg Every 5 Minutes PRN SL Prn Chest Pain 07/11/17 20:45 08/06/17 13:59 Ondansetron HCl (Zofran) 4 mg Q6H PRN IVP Nausea & Vomiting 07/11/17 21:00 08/10/17 20:59 Polyethylene Glycol (Miralax) 17 gm DAILYPRN PRN ORAL Constipation 07/11/17 21:00 08/10/17 20:59 Ranitidine HCl (Zantac) 150 mg TWICE A DAY GT 07/12/17 09:00 08/10/17 17:59 07/13/17 08:34 Temazepam (Restoril) 15 mg HSPRN PRN ORAL Insomnia 07/11/17 21:00 07/14/17 20:59 Wandy Rand M.D. Jul 13, 2017 10:26
--- NOTE | 2017-07-13 10:38 | General Progress Note ---
Assessment/Plan Status: stable Status Narrative WBCs lowering Assessment/Plan Status; Acute renal failure- Sepsis- likely urinary DM OOC h/o HTN PEG OBS Sz dosorder s/p Pneumonia h/o Anemia Plan: adjust BP meds Lasix to GT Avoid Nephrotoxics- Gastric support- Pulmonary toilet Monitor renal parameters and urine out put Keep BS and BP in check DC planning?? JIGNESH: Possible nonobstructive stones versus vascular calcifications in the right kidney. No hydronephrosis. Multiple bilateral renal cysts of varying size Subjective ROS Limited/Unobtainable: No Constitutional: Reports: malaise, weakness, other - non verbal Allergies: Coded Allergies: HALOPERIDOL (Verified Allergy, Unknown, 08/03/10) SULFA (SULFONAMIDE ANTIBIOTICS) (Verified Allergy, Unknown, 08/03/10) Objective Last 24 Hour Vital Signs Date Time Temp Pulse Resp B/P (MAP) Pulse Ox O2 Delivery O2 Flow Rate FiO2 07/13/17 08:34 134/72 07/13/17 08:34 84 134/72 07/13/17 08:34 84 134/72 07/13/17 08:00 98.2 84 20 134/72 97 Nasal Cannula 2.0 07/13/17 08:00 79 07/13/17 04:32 97.9 85 20 148/76 99 Nasal Cannula 2.0 07/13/17 04:00 80 07/13/17 00:00 81 07/12/17 23:46 97.7 81 20 129/63 98 Nasal Cannula 2.0 07/12/17 21:12 83 122/67 07/12/17 21:05 Nasal Cannula 2.0 28 07/12/17 21:05 99 Nasal Cannula 2.0 28 07/12/17 21:05 83 16 Nasal Cannula 2.0 28 07/12/17 20:00 98.1 83 20 122/67 99 Nasal Cannula 2.0 07/12/17 20:00 84 07/12/17 17:15 160/91 07/12/17 16:00 89 07/12/17 16:00 98.8 89 21 160/91 98 Nasal Cannula 2.0 07/12/17 12:00 97.9 86 21 144/109 98 Nasal Cannula 2.0 07/12/17 12:00 87 Laboratory Tests 07/13/17 07:05: White Blood Count 11.7H, Red Blood Count 3.76L, Hemoglobin 12.0, Hematocrit 36.4L, Mean Corpuscular Volume 97, Mean Corpuscular Hemoglobin 31.9H, Mean Corpuscular Hemoglobin Concent 33.0, Red Cell Distribution Width 12.7, Platelet Count 134L, Mean Platelet Volume 8.9, Neutrophils (%) (Auto) 73.1, Lymphocytes ( %) (Auto) 17.9L, Monocytes (%) (Auto) 7.4, Eosinophils (%) (Auto) 1.4, Basophils (%) (Auto) 0.3, Sodium Level 149H, Potassium Level 4.8, Chloride Level 107, Carbon Dioxide Level 34H, Anion Gap 8, Blood Urea Nitrogen 39H, Creatinine 0.8, Estimat Glomerular Filtration Rate , Glucose Level 255H, Uric Acid 6.5, Calcium Level 10.6H, Phosphorus Level 2.8, Magnesium Level 2.5, Total Bilirubin < 0.2, Aspartate Amino Transf (AST/SGOT) 21, Alanine Aminotransferase (ALT/SGPT) 25, Alkaline Phosphatase 108H, C-Reactive Protein, Quantitative 7.7H , Pro-B-Type Natriuretic Peptide 2911H, Total Protein 6.3L, Albumin 2.4L, Globulin 3.9, Albumin/Globulin Ratio 0.6L Height (Feet): 5 Height (Inches): 3.00 Weight (Pounds): 191 General Appearance: no apparent distress, lethargic Cardiovascular: normal rate Respiratory/Chest: decreased breath sounds Abdomen: soft Objective no other change ALBERTO GARCIA Jul 13, 2017 10:38
[2017-07-13] MEDS ORDERED: NovoLOG Insulin Flexpen SUBQ SCH (11:30)
--- NOTE | 2017-07-13 11:33 | Diagnostic Imaging Report ---
Indication: Dyspnea Comparison: 07/11/17 A single view chest radiograph was obtained. Findings: There are prominent superior mediastinal density again demonstrated. By 10/19/13 CT, this is due to enlarged thyroid gland extending into the superior mediastinum from the neck. This is unchanged at least from the standpoint of the chest x-ray. Cardiomegaly is present. Lungs are clear. Impression: No significant change.
[2017-07-13 12:00] VITALS: BP 134/71
[2017-07-13] MEDS ORDERED: NORVASC5 MG GT (12:50)
[2017-07-13] MEDS ORDERED: LISINOPRIL10 MG GT (12:50)
[2017-07-13] MEDS ORDERED: FUROSEMIDE20 M1 GT (12:50)
[2017-07-13] MEDS ORDERED: ROCEPHIN250 MG IV BOLUS (12:51)
--- NOTE | 2017-07-13 12:53 | Pulmonology Progress Note ---
Assessment/Plan Problems: (1) Sepsis (2) Acute encephalopathy (3) ATN (acute tubular necrosis) (4) CVA, old, aphasia (5) Seizure disorder (6) HTN (hypertension) (7) Diabetes (8) G tube feedings Assessment/Plan improving,afebrile continue abx, ID following check cultures, sensitive to Recephine bp controlled dc to shelter with three more days of abx Subjective ROS Limited/Unobtainable: No Constitutional: Reports: no symptoms HEENT: Repors: no symptoms Respiratory: Reports: no symptoms Allergies: Coded Allergies: HALOPERIDOL (Verified Allergy, Unknown, 08/03/10) SULFA (SULFONAMIDE ANTIBIOTICS) (Verified Allergy, Unknown, 08/03/10) Objective Last 24 Hour Vital Signs Date Time Temp Pulse Resp B/P (MAP) Pulse Ox O2 Delivery O2 Flow Rate FiO2 07/13/17 12:00 98.0 80 20 134/71 100 Nasal Cannula 2.0 07/13/17 09:40 Nasal Cannula 2.0 28 07/13/17 09:40 81 16 Nasal Cannula 2.0 28 07/13/17 09:40 98 Nasal Cannula 2.0 28 07/13/17 08:34 134/72 07/13/17 08:34 84 134/72 07/13/17 08:34 84 134/72 07/13/17 08:00 98.2 84 20 134/72 97 Nasal Cannula 2.0 07/13/17 08:00 79 07/13/17 04:32 97.9 85 20 148/76 99 Nasal Cannula 2.0 07/13/17 04:00 80 07/13/17 00:00 81 07/12/17 23:46 97.7 81 20 129/63 98 Nasal Cannula 2.0 07/12/17 21:12 83 122/67 07/12/17 21:05 Nasal Cannula 2.0 28 07/12/17 21:05 99 Nasal Cannula 2.0 28 07/12/17 21:05 83 16 Nasal Cannula 2.0 28 07/12/17 20:00 98.1 83 20 122/67 99 Nasal Cannula 2.0 07/12/17 20:00 84 07/12/17 17:15 160/91 07/12/17 16:00 89 07/12/17 16:00 98.8 89 21 160/91 98 Nasal Cannula 2.0 Intake and Output 07/13/17 07/14/17 19:00 07:00 Output Total 800 ml Balance -800 ml Output Urine Total 800 ml General Appearance: WD/WN HEENT: normocephalic, atraumatic Respiratory/Chest: chest wall non-tender, lungs clear, normal breath sounds Cardiovascular: normal peripheral pulses Abdomen: normal bowel sounds, no organomegaly Genitourinary: normal external genitalia Extremities: no cyanosis Skin: no rash Neurologic/Psychiatric: pt escort II-XII grossly normal, no motor/sensory deficits Lymphatic: no neck adenopathy Laboratory Tests 07/13/17 07:05: White Blood Count 11.7H, Red Blood Count 3.76L, Hemoglobin 12.0, Hematocrit 36.4L, Mean Corpuscular Volume 97, Mean Corpuscular Hemoglobin 31.9H, Mean Corpuscular Hemoglobin Concent 33.0, Red Cell Distribution Width 12.7, Platelet Count 134L, Mean Platelet Volume 8.9, Neutrophils (%) (Auto) 73.1, Lymphocytes ( %) (Auto) 17.9L, Monocytes (%) (Auto) 7.4, Eosinophils (%) (Auto) 1.4, Basophils (%) (Auto) 0.3, Sodium Level 149H, Potassium Level 4.8, Chloride Level 107, Carbon Dioxide Level 34H, Anion Gap 8, Blood Urea Nitrogen 39H, Creatinine 0.8, Estimat Glomerular Filtration Rate , Glucose Level 255H, Uric Acid 6.5, Calcium Level 10.6H, Phosphorus Level 2.8, Magnesium Level 2.5, Total Bilirubin < 0.2, Aspartate Amino Transf (AST/SGOT) 21, Alanine Aminotransferase (ALT/SGPT) 25, Alkaline Phosphatase 108H, C-Reactive Protein, Quantitative 7.7H , Pro-B-Type Natriuretic Peptide 2911H, Total Protein 6.3L, Albumin 2.4L, Globulin 3.9, Albumin/Globulin Ratio 0.6L Current Medications Medications (Trade) Dose Ordered Sig/Charli Route PRN Reason Start Time Stop Time Status Last Admin Dose Admin Acetaminophen (Tylenol) 650 mg Q4H PRN ORAL fever>100.5 07/11/17 21:00 08/06/17 20:59 Albuterol/ Ipratropium (DuoNeb 0.5-3(2.5)mg/3ml) 3 ml Q4H PRN HHN Shortness of Breath 07/11/17 21:00 07/14/17 20:59 Amlodipine Besylate (Norvasc) 5 mg DAILY GT 07/12/17 09:00 08/10/17 09:29 07/13/17 08:34 Aspirin (ASA) 81 mg DAILY GT 07/12/17 09:00 08/07/17 09:59 07/13/17 08:34 Carvedilol (Coreg) 6.25 mg Q12HR GT 07/11/17 21:00 08/10/17 20:59 07/13/17 08:34 Ceftriaxone Sodium 1 gm/ Dextrose 55 ml @ 110 mls/hr Q24H IVPB 07/11/17 21:00 07/16/17 20:59 07/12/17 21:12 Dextrose (Dextrose 50%) STAT PRN IV Hypoglycemia 07/11/17 21:00 08/10/17 20:59 Dextrose (Dextrose 50%) STAT PRN IV Hypoglycemia 07/13/17 10:45 08/12/17 10:44 Docusate Sodium (Colace) 100 mg TWICE A DAY GT 07/12/17 09:00 08/07/17 17:59 07/13/17 08:33 Furosemide (Lasix) 20 mg DAILY GT 07/13/17 11:00 08/12/17 10:59 07/13/17 11:32 Glycopyrrolate (Robinul) 0.1 mg Q6H PRN IV excessive secretions 07/11/17 21:00 08/10/17 20:59 Insulin Aspart (NovoLOG) BEFORE MEALS AND HS SUBQ 07/13/17 11:30 08/12/17 11:29 07/13/17 11:32 Lisinopril (Zestril) 20 mg BID GT 07/13/17 18:00 08/12/17 17:59 Morphine Sulfate (Morphine Sulfate) 2 mg Q4H PRN IVP Moderate Pain (Pain Scale 4-6) 07/11/17 21:00 07/16/17 20:59 Nitroglycerin (Ntg) 0.4 mg Every 5 Minutes PRN SL Prn Chest Pain 07/11/17 20:45 08/06/17 13:59 Ondansetron HCl (Zofran) 4 mg Q6H PRN IVP Nausea & Vomiting 07/11/17 21:00 08/10/17 20:59 Polyethylene Glycol (Miralax) 17 gm DAILYPRN PRN ORAL Constipation 07/11/17 21:00 08/10/17 20:59 Ranitidine HCl (Zantac) 150 mg TWICE A DAY GT 07/12/17 09:00 08/10/17 17:59 07/13/17 08:34 Temazepam (Restoril) 15 mg HSPRN PRN ORAL Insomnia 07/11/17 21:00 07/14/17 20:59 GORAN GUTIERREZ Jul 13, 2017 12:53
--- NOTE | 2017-07-13 12:54 | Diagnostic Imaging Report ---
APPROVED REPORT CPT Code: 68838 Present Symptoms Shortness of breath RIGHT LEG: Venous imaging reveals recanalized chronic thrombus in the superficial femoral vein. Large collateral vein noted anterior to the superficial femoral artery. The remainder of the deep venous system is within normal limits. There is no evidence of thrombus in the common femoral, popliteal or calf veins. The greater saphenous vein is also within normal limits. Doppler indicates normal spontaneous flow within these segments. LEFT LEG: Venous imaging reveals a patent deep venous system. There is no evidence of thrombus within the femoral, popliteal or tibial segments. The greater saphenous vein is also within normal limits. Doppler indicates normal spontaneous flow within these segments. There is no evidence of acute deep vein thrombosis.
--- NOTE | 2017-07-13 13:44 | Wound Care Consultation ---
Wound Assessment Wound Assessment #1: Wound Number: 1 Wound Present on Admission: No - patient was admitted with scattered scar tissue to sacral sites New Wound: Yes Status Change of Wound: No Wound Location Body Site: sacral - resurfaced Wound Type: pressure ulcer Minda Test: Does not Minda Pressure Ulcer Stage: II - resurfaced scattered Wound Thickness: Partial Thickness Percent of Wound [place]/Red: 100 Wound Drainage Description: Serosanguineous Wound Drainage Amount: Scant Wound Drainage Odor: None/Absent Tissue Surrounding Wound: Macerated Wound General Appearance: Reddened Wound Assessment #2: Wound Number: 2 Wound Present on Admission: No - noted scar tissue to site New Wound: Yes Status Change of Wound: No Wound Location Body Site Modif: left Wound Location Body Site: ischial tuberosity Wound Type: pressure ulcer - resurfaced Minda Test: Does not Minda Wound Thickness: Partial Thickness Wound Length: 2.0 Wound Width: 1.0 Wound Depth: 0.1 Percent of Wound [place]/Red: 100 Wound Drainage Description: Serosanguineous Wound Drainage Amount: Scant Wound Drainage Odor: None/Absent Tissue Surrounding Wound: Macerated Wound General Appearance: Reddened Wound Comment #1 Sacral resurfaced scattered stage 2. #2 Left ischial tuberosity resurfaced stage 2. Recommendation. -Local wound care as ordered. -Apply Low air loss SPR mattress. -Turn and reposition. -Keep clean and dry. -Optimize nutrition. -Keep clean and dry. -Offload affected areas. -Heel protectors. -Avoid shear and friction. -Offload heels and feet. -Apply cushion to o2 cannula for skin management around ears. -Assess and notify MD for any changes of condition to skin. KIKI OSEI Jul 13, 2017 13:44
[2017-07-13] MEDS ORDERED: Lisinopril 10mg tab GT SCH (18:00)
--- NOTE | 2017-07-14 08:32 | Discharge Summary ---
Discharge Summary Hospital Course Date of Admission Jul 07, 2017 at 00:46 Date of Discharge Jul 13, 2017 at 14:50 Admitting Diagnosis sepsis,uti HPI Florence Martínez is a 86 year old female who was admitted on Jul 07, 2017 at 00:46 for Weakness Hospital Course dc summary#[id number] Discharge Medications New Medications: Ceftriaxone Sod (Rocephin) 250 Mg Vial 1000 MG IV BOLUS DAILY for 3 Days, VIAL Amlodipine Besylate (Norvasc) 5 Mg Tablet 5 MG GT DAILY for 30 Days, TAB Furosemide* (Lasix*) 20 Mg Tablet 20 MG GT DAILY for 30 Days, TAB Lisinopril* (Lisinopril*) 10 Mg Tablet 20 MG GT BID for 30 Days, TAB Continued Medications: Amlodipine Besylate (Norvasc) 5 Mg Tablet 5 MG GT DAILY for For High Blood Pressure, TAB Insulin Lispro (Humalog) 100 Unit/1 Ml Cartridge 0 SUBQ BID, #1 UNITS 0 Refills Omeprazole (Prilosec) 20 Mg Capsule.dr 20 MG GT DAILY, CAP Ondansetron* (Zofran*) 4 Mg Tablet 4 MG GT Q4HR PRN for Nausea & Vomiting, TAB Pantoprazole* (Protonix*) 40 Mg Tablet.dr 40 MG GT DAILY, TAB Phenytoin Sodium Extended* (Dilantin*) 100 Mg Capsule 100 MG GT Q8HR, #90 CAP 0 Refills Discharge Condition Upon Discharge: stable Discharge Disposition Patient was discharged to SNF/Subacute Facility(03) Discharge Diagnoses: Discharge Instructions Discharge Instructions Special Instructions I have been assigned to complete a D/C Summary on this account. I was not involved in the patient management Jammie Manning NP (Vanchtein) Jul 14, 2017 08:32
--- NOTE | 2017-07-15 01:16 | Discharge Summary 2 SIG ---
DATE OF ADMISSION: 07/07/2017 DATE OF DISCHARGE: 07/13/2017 Reason For Admission: 86-year-old female with history of end-stage dementia, bedbound, G-tube feeding, diabetes, hypertension, seizure disorder, and history of CVA, presented to emergency room for evaluation from the prison facility for altered level of consciousness. The patient appeared to be more altered than her baseline at the prison [facility]. The patient had a fever and leukocytosis. In the emergency department, found leukocytosis, WBC - 22, Pro BNP elevated - 5084, evidence of acute renal failure with BUN -96 and creatinine -2.3, sodium -148, blood sugar- 352, and lactic acid -2.4. Urinalysis with gross evidence of urinary tract infection. Chest x-ray revealed no acute cardiopulmonary pathology. The patient was admitted for further management. ADMITTING DIAGNOSES: 1. Acute encephalopathy. 2. Sepsis. 3. Acute renal failure/possible acute tubular necrosis. 4. Diabetes mellitus, out of control. 5. Urinary tract infection. 6. 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 7. Hypertension. 8. Seizure disorder. 9. Gastrostomy tube feedings with dysphagia. 10. Sacral decubitus, stage 2, present on admission. 11. Left ischial tuberosity, stage 2, present on admission. Hospital Stay: The patient was admitted. ID and Nephrology consults were requested. Renal ultrasound revealed no hydronephrosis and normal echogenicity of bilateral kidneys. According to homicide squad commanding officer, the acute renal failure was likely due to dehydration. The patient was hydrated. Renal parameters and electrolytes were closely monitored. Nephrotoxics were avoided. Prior to discharge, BUN down to 39 and creatinine down to 0.8. Avoid nephrotoxics in future, provide adequate hydration in the prison facility and closely monitor renal parameters as outpatient. The patient was started on empiric antibiotics. ID closely followed. Blood culture were negative. Urine culture was positive for Proteus and E. coli. Antibiotic regimen was optimized based on culture. The patient will need three more days of antibiotics at the prison facility. Blood sugar was managed with sliding scale of insulin. Initially, blood sugar was out of control, likely secondary to sepsis, improving while staying in the hospital. Hemoglobin A1c 6.7, at goal. The patient needs close monitoring of blood sugar at the facility and possibly further optimization of anti-glycemic regimen. Wound care provided as per wound care nurse recommendation. Continue wound care at the prison facility. Blood pressure was managed with calcium channel velia, GALEN inhibitor, and Lasix. Continue at the prison facility. Pro BNP was trending down from initial 5084 down to 2911. Lipid panel was within normal limits. Seizure precautions were maintained. Dilantin was continued. No seizure activity while in the hospital. Strict aspiration precautions were maintained. DVT and GI prophylaxes provided. Bowel regimen instituted. The patient was stable for discharge back to prison facility. FINAL DIAGNOSES: 1. Acute encephalopathy on chronic advanced dementia. 2. Sepsis ( due to UTI) 3. Urinary tract infection with Escherichia coli and Proteus. 4. Acute renal failure, possible acute tubular necrosis. 5. Diabetes mellitus, out of control. 6. Cerebrovascular accident, old, with aphasia. 7. Hypertension. 8. Seizure disorder. 9. Gastrostomy tube feeding. 10. Sacral decubitus, stage 2, present on admission. 11. Left ischial tuberosity stage 2, present on admission. DISCHARGE MEDICATIONS: See medication reconciliation list. Discharge Instructions: The patient was discharged to prison facility. Followup: Follow up with medical doctor at the facility. Raul Garcia M.D. I have been assigned to dictate discharge summary on this account and I was not involved in the patient's management. Jammie arroyoewa N.PAlena DR: GAVIN JOB#: [id number] CC: EMILY
--- NOTE | 2017-08-02 17:59 | Cardiology Report ---
APPROVED REPORT EKG Measurement Heart [id number] HI [id number] [id number] Normal sinus rhythm Left axis deviation Left bundle branch block Abnormal ECG
== END 2017-07-13 14:50 | DRG 720 ==
LOC: EDBD 23:51 → EDBEDREQ 07-07 00:19 → EMR 07-07 00:30 → 2W 07-07 00:46 → EDBEDREQ 07-07 01:22 → 2W 07-07 22:23 → 4E 07-09 12:28 → 2E 07-11 18:15
DX: A41.9 Sepsis, unspecified organism (principal); N17.0 Acute kidney failure with tubular necrosis; G93.40 Encephalopathy, unspecified; L89.152 Pressure ulcer of sacral region, stage 2; L89.222 Pressure ulcer of left hip, stage 2; N39.0 Urinary tract infection, site not specified; I69.320 Aphasia following cerebral infarction; G40.909 Epilepsy, unspecified, not intractable, without status epilepticus; I10 Essential (primary) hypertension; Z93.1 Gastrostomy status; K21.9 Gastro-esophageal reflux disease without esophagitis; Z74.01 Bed confinement status; D72.829 Elevated white blood cell count, unspecified; F03.90 Unspecified dementia, unspecified severity, without behavioral disturbance, psychotic disturbance, mood disturbance, and anxiety; E11.65 Type 2 diabetes mellitus with hyperglycemia; B96.20 Unspecified Escherichia coli [E. coli] as the cause of diseases classified elsewhere; B96.4 Proteus (mirabilis) (morganii) as the cause of diseases classified elsewhere; J44.9 Chronic obstructive pulmonary disease, unspecified; E66.9 Obesity, unspecified; M19.90 Unspecified osteoarthritis, unspecified site; D64.9 Anemia, unspecified; Z86.718 Personal history of other venous thrombosis and embolism; Z79.4 Long term (current) use of insulin; Z68.33 Body mass index [BMI] 33.0-33.9, adult
CPT/HCPCS: 36415; 36600; 71010; 76775; 80053; 80061; 80185; 80202; 81001; 81003; 82436; 82550; 82553; 82803; 82962; 82977; 83036; 83605; 83735; 83880; 83935; 84100; 84133; 84300; 84439; 84443; 84484; 84550; 85007; 85025; 85610; 85730; 86140; 86705; 86709; 86803; 87040; 87081; 87086; 87181; 87340; 89050; 93005; 93306; 93970; 94640; 94664; 94760; 99285; J1815; J7620